=== PATIENT | male | born 1940 | race Caucasian/White ===

== ENCOUNTER 2016-12-11 15:08 | Emergency (ER) | payer MEDICAID, MEDICARE ==
[2016-12-11 15:58] VITALS: BP 154/79
[2016-12-11] MEDS ORDERED: Acetaminophen/oxyCODONE 325-5 MG Tab PO ONE (16:06)
--- NOTE | 2016-12-11 16:13 | EDM.PDOC ---
ED HPI GENERAL MEDICAL PROBLEM - General Chief Complaint: Headache Stated Complaint: HEADACHE Time Seen by Provider: 12/11/16 16:00 Source of Information: Reports: Patient History Limitations: Reports: No limitations - History of Present Illness INITIAL COMMENTS - FREE TEXT/NARRATIVE: Kavitha reports a 10 day hx of occipital frontal headache that started in the R neck. The headache is aching and throbbing, sharp at times, and not asociated with visual or gi disturbance. There are no sxs in the UEs. He has had cervical arthralgia in the past, and was on MS orally until about 3 mos ago. He was seen in yesterday, and an injection of Toradol was ineffective. Treatments [employer]: Reports: Acetaminophen, NSAIDS - Related Data Allergies Allergy/AdvReac Type Severity Reaction Status Date / Time No Known Allergies Allergy Verified 12/11/16 15:48 Home Meds: Home Meds Famotidine [Pepcid] 20 mg PO DAILY 12/11/16 [History] Past Medical History Gastrointestinal History: Reports: GERD Social & Family History - Tobacco Use Smoking Status *Q: Current Every Day Smoker Years of Tobacco use: 60 Packs/Tins Daily: 0.5 Used Tobacco, but Quit: No Second Hand Smoke Exposure: No - Caffeine Use Caffeine Use: Reports: Coffee - Recreational Drug Use Recreational Drug Use: No ED ROS GENERAL - Review of Systems Review Of Systems: See Below Constitutional: Reports: malaise HEENT: Reports: No symptoms Respiratory: Reports: No Symptoms Cardiovascular: Reports: No symptoms Endocrine: Reports: no symptoms GI/Abdominal: Reports: No symptoms Musculoskeletal: Reports: neck pain Skin: Reports: no symptoms Neurological: Reports: Headache Psychiatric: Reports: No symptoms Hematologic/Lymphatic: Reports: no symptoms Immunologic: Reports: no symptoms - Physical Exam Exam: See Below Exam Limited By: No limitations General Appearance: alert, WD/WN, no apparent distress Eye Exam: bilateral eye: normal inspection, PERRL Ears: normal external exam Nose: normal inspection Throat/Mouth: Normal inspection, Normal lips, Normal oropharynx, Normal voice Head Exam: normocephalic, scalp tenderness Neck: normal inspection, limited range of motion (guarding at end points of lateral rotation), tender lateral (right) Respiratory/Chest: no respiratory distress, lungs clear, normal breath sounds Cardiovascular: regular rate, rhythm, no murmur GI/Abdominal: Normal Bowel Sounds, Soft, Non-Tender, No Organomegaly, No Mass Neuro Exam (Abbreviated): alert, oriented, CN II-XII intact, normal cognition, normal gait, normal reflexes Back Exam: normal inspection, full range of motion Extremities: normal inspection, normal range of motion Psychiatric: normal affect, normal mood Skin Exam: Warm, Dry, Intact, Normal color Course - Vital Signs Text/Narrative:: Following admission to the [facility] ED, I administered Percocet 5/325 orally and sent to Diagnostic Imaging for c-spine x rays: degenerative disease with spurs at C4-5-6; further assessment is needed, and he will go to the [facility] as out pt for management. Last Recorded V/S: Last Vital Signs Temp 36.8 C 12/11/16 15:10 Pulse 68 12/11/16 15:10 Resp 18 12/11/16 15:10 BP 154/79 H 12/11/16 15:10 Pulse Ox 99 12/11/16 15:10 - Orders/Labs/Meds Orders: Active Orders 24 hr Category Date Time Status Cervical Spine Min 4V [CR] Stat Exams 12/11/16 16:06 Taken Meds: Medications Discontinued Medications Generic Name Dose Route Start Last Admin Trade Name Freq PRN Reason Stop Dose Admin Oxycodone/Acetaminophen 1 tab 12/11/16 16:06 12/11/16 16:30 Percocet 325-5 Mg PO 12/11/16 16:07 1 tab ONETIME ONE Administration Departure - Departure Time of Disposition: 16:50 Disposition: Home, Self-Care 01 Condition: fair Clinical Impression: Headache Qualifiers: Headache type: unspecified Headache chronicity pattern: unspecified pattern Intractability: not intractable Qualified Code(s): R51 - Headache Cervical spondylosis Qualifiers: Spinal osteoarthritis complication: unspecified spinal osteoarthritis Qualified Code(s): M47.812 - Spondylosis without myelopathy or radiculopathy, cervical region - Discharge Information Forms: ED Department Discharge - Problem List & Annotations (1) Headache SNOMED Code(s): 55931757 Code(s): R51 - HEADACHE Status: Acute Current Visit: Yes Annotation/ Comment:: Headaches likely related to cervical spondylosis w degenerative changes. Mr Medina will seek further assessment at the [facility] for managment. I provided some Ultram 50 mg q 6 hrs prn for headache sxs in the interim. Qualifiers: Headache type: unspecified Headache chronicity pattern: unspecified pattern Intractability: not intractable Qualified Code(s): R51 - Headache (2) Cervical spondylosis SNOMED Code(s): 227879961 Code(s): M47.812 - SPONDYLOSIS W/O MYELOPATHY OR RADICULOPATHY, CERVICAL REGION Status: Acute Current Visit: Yes Annotation/Comment:: Further assessment with possible MRI of cervical spine would be suggested at the [facility]. Qualifiers: Spinal osteoarthritis complication: unspecified spinal osteoarthritis Qualified Code(s): M47.812 - Spondylosis without myelopathy or radiculopathy, cervical region - Problem List Review Problem List Initiated/Reviewed/Updated: Yes - My Orders Last 24 Hours: My Active Orders 12/11/16 16:06 Cervical Spine Min 4V [CR] Stat - Assessment/Plan Last 24 Hours: My Active Orders 12/11/16 16:06 Cervical Spine Min 4V [CR] Stat Plan: Follow up at [facility] in [place].
[2016-12-11] MEDS ORDERED: traMADol 50 MG Tab PO ONE (16:36)
--- NOTE | 2016-12-12 10:41 | CR ---
INDICATION: Cervical degenerative changes, headache, no injury. CERVICAL SPINE: Six images of the cervical spine were obtained in five projections and revealed an appearance suggesting demineralization, which may be on the basis of osteoporosis and should be correlated clinically. Hypertrophic degenerative changes are noted minimally off anterior C4 vertebral body inferiorly. Slight degenerative disk disease may be present at that level with slightly decreased disk space seen. C5-6, C6-7, and C7-T1 have decreased disk spaces with hypertrophic degenerative changes of moderate degree at those levels. The C7-T1 level was not ideally visualized in the lateral projection, however. There is anterolisthesis suggested at C3-4, grade 1. Slight reversal of normal cervical lordosis is centered at C4-5. Degenerative changes with narrowing of the joint space are seen at the atlanto- odontoid interval. The prevertebral space appeared to be normal. There is narrowing of the neural foramina at the C5-6, C6-7 levels, most prominently on the left, relatively mild on the right. The odontoid appeared to be intact, as visualized. Hypertrophic degenerative changes are noted at the lateral masses in the mid to lower cervical spine. IMPRESSION: Osteoarthritis, degenerative disk disease, impingement on neural foramina, and possible osteoporosis. MTDD
== END 2016-12-11 16:50 | disposition home or self-care (01) ==
LOC: FB.ED 15:08
DX: R51 Headache (principal); M47.812 Spondylosis without myelopathy or radiculopathy, cervical region; F17.200 Nicotine dependence, unspecified, uncomplicated; K21.9 Gastro-esophageal reflux disease without esophagitis; Z79.899 Other long term (current) drug therapy
CPT/HCPCS: 72050; 99284; A9270; 99283

== ENCOUNTER 2017-08-24 14:15 | Inpatient (IN) | payer MEDICARE ==
[2017-08-24] MEDS ORDERED: Albuterol/Ipratropium 3.0-0.5 MG/3 ML Neb Soln NEB ONE (14:27)
[2017-08-24] MEDS ORDERED: methylPREDNISolone Sodium Succinate 125 MG/2 ML SDV IVPUSH ONE (14:27)
[2017-08-24] MEDS ORDERED: Albuterol/Ipratropium 3.0-0.5 MG/3 ML Neb Soln ONE (14:27)
--- NOTE | 2017-08-24 14:29 | EDM.PDOC ---
ED HPI GENERAL MEDICAL PROBLEM - General Stated Complaint: SOB, COUGHING AND FEVER Time Seen by Provider: 08/24/17 14:15 Source of Information: Reports: Patient History Limitations: Reports: Respiratory Distress - History of Present Illness INITIAL COMMENTS - FREE TEXT/NARRATIVE: 77 y.o.w.m, h/o COPD, former smoker, came with his PC to the ed due to worsening of SOB. Pt is on inhalers at home which "do not work". Pt has chronic low back pain. He lives by himself. No C/O , no N/V/d or any other acute medical issues. BP 197/77 temp 36.7 Pulse ox 93% on 3 l O2 Onset: Today Onset Date: 08/23/17 Onset Time: 18:00 Duration: Day(s):, Getting Worse, Intermittent Location: Reports: Chest Quality: Reports: Same as Previous Episode (SOB) Severity: Moderate Improves with: Reports: Rest Worsens with: Reports: Movement Context: Reports: Other (COPD) Associated Symptoms: Reports: Other (back pain) Flank Pain Score (Numeric/FACES): 7 denies when asked Pain Score (Numeric/FACES): 0 - Related Data Allergies Allergy/AdvReac Type Severity Reaction Status Date / Time No Known Allergies Allergy Verified 08/24/17 18:50 Home Meds: Home Meds Budesonide/Formoterol Fumarate [Symbicort 80-4.5 Mcg Inhaler] 1 puff INH BID [History] Omeprazole [priLOSEC OTC] 20 mg PO DAILY 08/24/17 [History] Albuterol Sulfate [Proair Hfa] 8.5 gm IH Q4HR #1 hfa.aer.ad 08/25/17 [Rx] Azithromycin 500 mg PO DAILY #2 tablet 08/25/17 [Rx] Benzonatate [Tessalon Perle] 100 mg PO QID #20 capsule 08/25/17 [Rx] Codeine/guaiFENesin [guaiFENesin-Codeine Syrup] 10 ml PO Q6H PRN #240 ml [Rx] Nicotine [Nicotine Patch] 1 each TD DAILY #30 patch.td24 08/25/17 [Rx] predniSONE 20 mg PO BID #10 tab 08/25/17 [Rx] Past Medical History Gastrointestinal History: Reports: GERD Social & Family History - Tobacco Use Smoking Status *Q: Current Every Day Smoker Years of Tobacco use: 60 Packs/Tins Daily: 0.5 Used Tobacco, but Quit: No Second Hand Smoke Exposure: No - Caffeine Use Caffeine Use: Reports: Coffee - Recreational Drug Use Recreational Drug Use: No ED ROS GENERAL - Review of Systems Review Of Systems: See Below Constitutional: Reports: No Symptoms, Other (back pain, SOB) HEENT: Reports: No Symptoms Respiratory: Reports: Shortness of Breath Cardiovascular: Reports: No Symptoms Endocrine: Reports: No Symptoms GI/Abdominal: Reports: No Symptoms : Reports: No Symptoms Musculoskeletal: Reports: Back Pain Skin: Reports: No Symptoms Neurological: Reports: No Symptoms Psychiatric: Reports: No Symptoms Hematologic/Lymphatic: Reports: No Symptoms Immunologic: Reports: No Symptoms ED EXAM, GENERAL - Physical Exam Exam: See Below Exam Limited By: Respiratory Distress General Appearance: Alert, WD/WN, Moderate Distress Eye Exam: Bilateral Eye: Normal Inspection Ears: Normal External Exam Ear Exam: Bilateral Ear: Auricle Normal Nose: Normal Inspection, Normal Mucosa, No Blood Throat/Mouth: Normal Inspection, Normal Lips Head: Atraumatic, Normocephalic Neck: Normal Inspection, Supple, Non-Tender, Full Range of Motion Respiratory/Chest: Respiratory Distress, Decreased Breath Sounds, Wheezing, Prolonged Expiration Cardiovascular: Normal Peripheral Pulses, Regular Rate, Rhythm, No Edema, No Gallop, No JVD, No Murmur, No Rub Peripheral Pulses: 1+: Radial (L) GI/Abdominal: Normal Bowel Sounds, Soft, Non-Tender, No Organomegaly (Male) Exam: Deferred Rectal (Males) Exam: Deferred Back Exam: Normal Inspection, Full Range of Motion Extremities: Normal Inspection, Normal Range of Motion Neurological: Alert, Oriented, CN II-XII Intact, Normal Cognition, No Motor/ Sensory Deficits Psychiatric: Normal Affect, Normal Mood Skin Exam: Warm, Dry, Intact, Normal Color, No Rash Lymphatic: No Adenopathy Course - Vital Signs Text/Narrative:: 77 y.o.w.m, h/o COPD, former smoker, came with his PC to the ed due to worsening of SOB. Pt is on inhalers at home which "do not work". Pt has chronic low back pain. He lives by himself. No C/O , no N/V/d or any other acute medical issues. BP 199/77 temp 36.7 Pulse ox 93% on 3 l O2 PE: Thin 77 y.o.w.m with SOB Imaging: CXR: COPD, NAD Labs: WBC H/H nl, Neutrophils 93% Na 138 K 3.4 Impression: COPD exacerbation, Hematuria ( will see urologist this week), chronic back pain Tx: Solu medrol, Duo neb, Toradol Reexam: Pt's pulse 0x drops below 86% when ambulating after tx, BP improved 4.40 pm: Consultation: Dr. Burgess, Hospitalist: Accepted for admission Plan: Admit to [facility] Last Recorded V/S: Last Vital Signs Temp 36.9 C 08/25/17 08:00 Pulse 81 08/25/17 08:00 Resp 18 08/25/17 08:00 BP 137/71 08/25/17 08:00 Pulse Ox 93 L 08/25/17 08:00 - Orders/Labs/Meds Labs: Laboratory Tests 08/24/17 08/24/17 08/24/17 Range/Units 15:00 15:00 15:00 WBC 6.3 (4.5-12.0) X10-3/uL RBC 4.21 L (4.30-5.75) x10(6)uL Hgb 12.8 (11.5-15.5) g/dL Hct 38.1 (30.0-51.3) % MCV 90.4 (80-96) fL MCH 30.4 (27.7-33.6) pg MCHC 33.6 (32.2-35.4) g/dL RDW 13.1 (11.5-15.5) % Plt Count 184 (125-369) X10(3)uL MPV 7.4 (7.4-10.4) fL Neut % (Auto) 78.0 (46-82) % Lymph % (Auto) 11.9 L (13-37) % [place] % (Auto) 9.0 (4-12) % Eos % (Auto) 1 (1.0-5.0) % Baso % (Auto) 1 (0-2) % Neut # (Auto) 5.0 (1.6-8.3) # Lymph # (Auto) 0.7 (0.6-5.0) # [place] # (Auto) 0.6 (0.0-1.3) # Eos # (Auto) 0.0 (0.0-0.8) # Baso # (Auto) 0.0 (0.0-0.2) # PT 10.8 (8.7-11.1) INR 1.07 (0.89-1.13) Sodium 143 (135-145) mmol/L Potassium 3.4 L (3.5-5.3) mmol/L Chloride 107 (100-110) mmol/L Carbon Dioxide 26 (21-32) mmol/L BUN 17 (7-18) mg/dL Creatinine 0.9 (0.70-1.30) mg/dL Est Cr Clr Drug Dosing 68.72 mL/min Estimated GFR (MDRD) > 60 (>60) BUN/Creatinine Ratio 18.9 (9-20) Glucose 103 (80-116) mg/dL Lactic Acid (0.4-2.2) mmol/L Calcium 8.6 (8.6-10.2) mg/dL Urine Color (YELLOW) Urine Appearance (CLEAR) Urine pH (5.0-6.5) Ur Specific [place] (1.010-1.025) Urine Protein (NEGATIVE) mg/dL Urine Glucose (UA) (NEGATIVE) mg/dL Urine Ketones (NEGATIVE) mg/dL Urine Occult Blood (NEGATIVE) Urine Nitrite (NEGATIVE) Urine Bilirubin (NEGATIVE) Urine Urobilinogen (NEGATIVE) mg/dL Ur Leukocyte Esterase (NEGATIVE) Urine RBC (0) Urine WBC (0) Ur Squamous Epith Cells (NS,R,O) Urine Bacteria (NS) Urine Mucus (NS) 08/24/17 08/24/17 Range/Units 15:00 15:20 WBC (4.5-12.0) X10-3/uL RBC (4.30-5.75) x10(6)uL Hgb (11.5-15.5) g/dL Hct (30.0-51.3) % MCV (80-96) fL MCH (27.7-33.6) pg MCHC (32.2-35.4) g/dL RDW (11.5-15.5) % Plt Count (125-369) X10(3)uL MPV (7.4-10.4) fL Neut % (Auto) (46-82) % Lymph % (Auto) (13-37) % [place] % (Auto) (4-12) % Eos % (Auto) (1.0-5.0) % Baso % (Auto) (0-2) % Neut # (Auto) (1.6-8.3) # Lymph # (Auto) (0.6-5.0) # [place] # (Auto) (0.0-1.3) # Eos # (Auto) (0.0-0.8) # Baso # (Auto) (0.0-0.2) # PT (8.7-11.1) INR (0.89-1.13) Sodium (135-145) mmol/L Potassium (3.5-5.3) mmol/L Chloride (100-110) mmol/L Carbon Dioxide (21-32) mmol/L BUN (7-18) mg/dL Creatinine (0.70-1.30) mg/dL Est Cr Clr Drug Dosing mL/min Estimated GFR (MDRD) (>60) BUN/Creatinine Ratio (9-20) Glucose (80-116) mg/dL Lactic Acid 1.2 (0.4-2.2) mmol/L Calcium (8.6-10.2) mg/dL Urine Color Yellow (YELLOW) Urine Appearance Clear (CLEAR) Urine pH 5.0 (5.0-6.5) Ur Specific [place] 1.020 (1.010-1.025) Urine Protein Negative (NEGATIVE) mg/dL Urine Glucose (UA) Normal (NEGATIVE) mg/dL Urine Ketones 15 H (NEGATIVE) mg/dL Urine Occult Blood Moderate H (NEGATIVE) Urine Nitrite Negative (NEGATIVE) Urine Bilirubin Negative (NEGATIVE) Urine Urobilinogen Normal (NEGATIVE) mg/dL Ur Leukocyte Esterase Negative (NEGATIVE) Urine RBC 5-10 (0) Urine WBC 0-5 (0) Ur Squamous Epith Cells Moderate H (NS,R,O) Urine Bacteria Few H (NS) Urine Mucus Moderate H (NS) Meds: Medications Discontinued Medications Generic Name Dose Route Start Last Admin Trade Name Freq PRN Reason Stop Dose Admin Albuterol/Ipratropium 3 ml 08/24/17 14:27 08/24/17 14:30 Duoneb 3.0-0.5 Mg/3 Ml NEB 08/24/17 14:28 3 ml ONETIME ONE Administration Albuterol/Ipratropium Confirm 08/24/17 14:27 08/24/17 16:49 Duoneb 3.0-0.5 Mg/3 Ml Administered 08/24/17 14:28 Not Given Dose 3 ml .ROUTE .STK-MED ONE Albuterol/Ipratropium 3 ml 08/24/17 17:00 08/25/17 08:11 Duoneb 3.0-0.5 Mg/3 Ml NEB 3 ml Q4H KRISH Administration Azithromycin 500 mg 08/24/17 19:45 08/25/17 08:11 Zithromax PO 500 mg DAILY KRISH Administration Benzonatate 200 mg 08/24/17 21:00 08/25/17 08:11 Tessalon Perles PO 200 mg TID KRISH Administration Guaifenesin/Codeine Phosphate 10 ml 08/24/17 19:42 08/25/17 00:50 Robitussin Ac PO 10 ml Q6H PRN Administration Cough Ketorolac Tromethamine 15 mg 08/24/17 15:45 08/24/17 15:52 Toradol IVPUSH 08/24/17 15:46 15 mg ONETIME STA Administration Ketorolac Tromethamine 15 mg 08/24/17 19:42 Toradol IVPUSH 08/29/17 19:43 Q6H PRN Breakthrough Pain Ketorolac Tromethamine 15 mg 08/24/17 19:49 Toradol IVPUSH 08/29/17 19:43 Q6H PRN Breakthrough Pain Melatonin 6 mg 08/24/17 21:00 08/24/17 20:54 Melatonin PO 6 mg BEDTIME KRISH Administration Methylprednisolone Sodium Succinate 125 mg 08/24/17 14:27 08/24/17 15:45 Solu-Medrol IVPUSH 08/24/17 14:28 125 mg ONETIME ONE Administration Methylprednisolone Sodium Succinate 125 mg 08/24/17 17:00 08/24/17 20:01 Solu-Medrol IVPUSH Not Given Q8H KRISH Methylprednisolone Sodium Succinate 125 mg 08/25/17 00:00 08/25/17 08:10 Solu-Medrol IVPUSH 125 mg Q8H KRISH Administration Mometasone Furoate/Formoterol Fumar 1 puff 08/24/17 21:00 08/25/17 08:10 Dulera 100-5 Mcg IH 1 puff BID KRISH Administration Nicotine 14 mg 08/24/17 20:00 08/25/17 08:11 Habitrol TRDERM 14 mg DAILY KRISH Administration Pantoprazole Sodium 40 mg 08/25/17 07:30 08/25/17 08:09 Protonix PO 40 mg ACBREAKFAST KRISH Administration Prednisone 20 mg 08/24/17 21:00 08/25/17 08:11 Prednisone PO 20 mg BID KRISH Administration Sodium Chloride 10 ml 08/24/17 15:40 08/25/17 00:38 Saline Flush FLUSH 10 ml ASDIRECTED PRN Administration Keep Vein Open Temazepam 15 mg 08/24/17 19:42 08/24/17 20:54 Restoril PO 15 mg BEDTIME PRN Administration Insomnia Tramadol HCl 50 mg 08/24/17 19:42 08/25/17 00:50 Ultram PO 50 mg Q6H PRN Administration Breakthrough Pain Departure - Departure Time of Disposition: 07:00 Disposition: Admitted As Inpatient 64 Condition: Fair Clinical Impression: COPD (chronic obstructive pulmonary disease) with chronic bronchitis - Discharge Information
[2017-08-24] MEDS: Sodium Chloride 0.9% 10 ML Syringe FLUSH PRN (15:43)
[2017-08-24] MEDS ORDERED: Ketorolac 30 MG/ML SDV IVPUSH STA (15:45)
[2017-08-24] MEDS ORDERED: methylPREDNISolone Sodium Succinate 125 MG/2 ML SDV IVPUSH SCH (17:00)
[2017-08-24] MEDS: Albuterol/Ipratropium 3.0-0.5 MG/3 ML Neb Soln NEB SCH ×2 (18:51→20:54)
[2017-08-24] MEDS ORDERED: Codeine/guaiFENesin 100-10 MG/5 ML Syrup 5 ML Cup PO PRN (19:42)
[2017-08-24] MEDS ORDERED: Ketorolac 30 MG/ML SDV IVPUSH PRN (19:42)
[2017-08-24] MEDS ORDERED: traMADol 50 MG Tab PO PRN (19:42)
[2017-08-24] MEDS ORDERED: Temazepam 15 MG Cap PO PRN (19:42)
--- NOTE | 2017-08-24 19:48 | PCM.HP ---
H&P History of Present Illness - General Date of Service: 08/24/17 Admit Problem/Dx: Admission Diagnosis/Problem Admission Diagnosis/Problem COPD, Moderate chronic obstructive pulmonary disease Source of Information: Patient, Old Records History Limitations: Reports: No Limitations - History of Present Illness Initial Comments - Free Text/Narative: 77-year-old male with COPD. Presented to the ER with shortness of breath cough for 2 days also. Initially responded to nebulized albuterol but was found to be hypoxic on ambulation. He also is known to have the tobacco abuse was cut back. He denies any fever chest pain or chills Flank Pain Score (Numeric/FACES): 7 denies when asked Pain Score (Numeric/FACES): 0 - Related Data Allergies/Adverse Reactions: Allergies Allergy/AdvReac Type Severity Reaction Status Date / Time No Known Allergies Allergy Verified 08/24/17 18:50 Home Medications: Home Meds Budesonide/Formoterol Fumarate [Symbicort 80-4.5 Mcg Inhaler] 1 puff INH BID [History] Ciprofloxacin HCl [Cipro] 500 mg PO BID 08/24/17 [History] Omeprazole [priLOSEC OTC] 20 mg PO DAILY 08/24/17 [History] Past Medical History HEENT History: Reports: Impaired Vision Cardiovascular History: Reports: None Respiratory History: Reports: COPD, SOB Gastrointestinal History: Reports: GERD Genitourinary History: Reports: BPH, Other (See Below) Other Genitourinary History: blood in urine past week then better, then came back Musculoskeletal History: Reports: Arthritis, Back Pain, Chronic, Neck Pain, Chronic Neurological History: Reports: None Psychiatric History: Reports: Anxiety Endocrine/Metabolic History: Reports: None Hematologic History: Reports: None Immunologic History: Reports: None Oncologic (Cancer) History: Reports: None Dermatologic History: Reports: None - Infectious Disease History Infectious Disease History: Reports: Chicken Pox, Measles - Past Surgical History Head Surgeries/Procedures: Reports: None HEENT Surgical History: Reports: Adenoidectomy, Tonsillectomy Cardiovascular Surgical History: Reports: None Respiratory Surgical History: Reports: None GI Surgical History: Reports: Appendectomy Male Surgical History: Reports: Circumcision Endocrine Surgical History: Reports: None Neurological Surgical History: Reports: None Musculoskeletal Surgical History: Reports: None Oncologic Surgical History: Reports: None Dermatological Surgical History: Reports: None Social & Family History - Family History Family Medical History: Noncontributory - Tobacco Use Smoking Status *Q: Heavy Tobacco Smoker Years of Tobacco use: 62 Packs/Tins Daily: 0.5 Used Tobacco, but Quit: No Second Hand Smoke Exposure: No - Caffeine Use Caffeine Use: Reports: Coffee, Soda - Recreational Drug Use Recreational Drug Use: No H&P Review of Systems - Review of Systems: Review Of Systems: ROS reveals no pertinent complaints other than HPI. Exam - Exam Exam: See Below - Vital Signs Vital Signs: Last Vital Signs Temp 98.3 F 08/24/17 17:20 Pulse 88 08/24/17 17:20 Resp 20 08/24/17 17:20 BP 143/82 H 08/24/17 17:20 Pulse Ox 97 08/24/17 17:20 Weight: 78.834 kg - Exam Quality Assessment: Supplemental Oxygen General: Alert, Oriented, 4 HEENT: PERRLA, Hearing Intact, Mucosa Moist & [place], Nares Patent, Normal Nasal Septum, Posterior Pharynx Clear, Conjunctiva Clear, EOMI, EACs Clear, TMs Clear Neck: Supple, Trachea Midline, 2 Lungs: Decreased Breath Sounds, Rhonchi Cardiovascular: Regular Rate, Regular Rhythm, Systolic Murmur GI/Abdominal Exam: Normal Bowel Sounds, Soft, Non-Tender, No Organomegaly, No Distention, No Abnormal Bruit, No Mass, Pelvis Stable (Male) Exam: No Hernia, Normal Inspection, Normal Prostate, Circumcised Rectal (Males) Exam: Deferred Back Exam: Normal Inspection, Full Range of Motion, NT Extremities: Normal Inspection, Normal Range of Motion, Non-Tender, No Pedal Edema, Normal Capillary Refill Skin: Warm, Dry, Intact Neurological: Cranial Nerves Intact, Reflexes Equal Bilateral Neuro Extensive - Mental Status: Alert, Oriented x3, Normal Mood/Affect, Normal Cognition Neuro Extensive - Motor, Sensory, Reflexes: CN II-XII Intact, Normal Gait, Normal Reflexes Psychiatric: Alert, Normal Affect, Normal Mood - Patient Data Result Diagrams: 08/25/17 06:05 08/25/17 06:05 *Q Meaningful Use (ADM) - VTE *Q VTE Criteria *Q: - Stroke *Q Stroke Criteria *Q: - AMI *Q AMI Criteria *Q: - Problem List (1) COPD (chronic obstructive pulmonary disease) SNOMED Code(s): 64024229 ICD Code: J44.9 - CHRONIC OBSTRUCTIVE PULMONARY DISEASE, UNSPECIFIED Status : Acute Current Visit: Yes Qualifiers: COPD type: chronic bronchitis (2) OZZIE (generalized anxiety disorder) SNOMED Code(s): 99092816 ICD Code: F41.1 - GENERALIZED ANXIETY DISORDER Status: Acute Current Visit: Yes (3) Chronic back pain SNOMED Code(s): 728222225 ICD Code: M54.9 - DORSALGIA, UNSPECIFIED; G89.29 - OTHER CHRONIC PAIN Status: Acute Current Visit: Yes (4) Hematuria SNOMED Code(s): 12446263 ICD Code: R31.9 - HEMATURIA, UNSPECIFIED Status: Acute Current Visit: Yes (5) Tobacco abuse SNOMED Code(s): 715726146 ICD Code: Z72.0 - TOBACCO USE Status: Acute Current Visit: Yes (6) Cervical spondylosis SNOMED Code(s): 647673490 ICD Code: M47.812 - SPONDYLOSIS W/O MYELOPATHY OR RADICULOPATHY, CERVICAL REGION Status: Acute Current Visit: No Problem Details: Further assessment with possible MRI of cervical spine would be suggested at the [facility]. Qualifiers: Spinal osteoarthritis complication: unspecified spinal osteoarthritis Qualified Code(s): M47.812 - Spondylosis without myelopathy or radiculopathy, cervical region Problem List Initiated/Reviewed/Updated: Yes Orders Last 24hrs: Active Orders 24 hr Category Date Time Status RT Aerosol Therapy [RC] ASDIRECTED Care 08/24/17 16:52 Active Adult Diet [DIET] Diet 08/24/17 Breakfast Ordered CBC WITH AUTO DIFF [HEME] AM Lab 08/25/17 05:11 Ordered COMPREHENSIVE METABOLIC PN,CMP [CHEM] AM Lab 08/25/17 05:11 Ordered PRO B-TYPE NATRIUR PEPT,BNPPRO [CHEM] DAILY Lab 08/25/17 05:11 Ordered Albuterol/Ipratropium [DuoNeb 3.0-0.5 MG/3 ML] Med 08/24/17 17:00 Active 3 ml NEB Q4H Azithromycin [Zithromax] Med 08/24/17 19:45 Ordered 500 mg PO DAILY Benzonatate [Tessalon Perles] Med 08/24/17 21:00 Ordered 200 mg PO TID Codeine/guaiFENesin [Robitussin AC] Med 08/24/17 19:42 Ordered 10 ml PO Q6H PRN Ketorolac [Toradol] Med 08/24/17 19:42 Ordered 15 mg IVPUSH Q6H PRN Melatonin Med 08/24/17 21:00 Ordered 6 mg PO BEDTIME Mometasone/Formoterol [Dulera 100-5 MCG] Med 08/24/17 21:00 Active 1 puff IH BID Pantoprazole [ProTONIX] Med 08/25/17 07:30 Active 40 mg PO ACBREAKFAST Sodium Chloride 0.9% [Saline Flush] Med 08/24/17 15:40 Active 10 ml FLUSH ASDIRECTED PRN Temazepam [Restoril] Med 08/24/17 19:42 Ordered 15 mg PO BEDTIME PRN methylPREDNISolone Sod Succ [Solu-MEDROL] Med 08/25/17 00:00 Active 125 mg IVPUSH Q8H predniSONE Med 08/24/17 21:00 Ordered 20 mg PO BID traMADol [Ultram] Med 08/24/17 19:42 Ordered 50 mg PO Q6H PRN Medication Orders Albuterol/Ipratropium (Duoneb 3.0-0.5 Mg/3 Ml) 3 ml NEB Q4H KR[facility] Last Admin: 08/24/17 18:51 Dose: Azithromycin (Zithromax) 500 mg PO DAILY [facility] Benzonatate (Tessalon Perles) 200 mg PO TID [facility] Guaifenesin/Codeine Phosphate (Robitussin Ac) 10 ml PO Q6H PRN PRN Reason: Cough Ketorolac Tromethamine (Toradol) 15 mg IVPUSH Q6H PRN PRN Reason: Breakthrough Pain Stop: 08/29/17 19:43 Melatonin (Melatonin) 6 mg PO BEDTIME [facility] Methylprednisolone Sodium Succinate (Solu-Medrol) 125 mg IVPUSH Q8H [facility] Mometasone Furoate/Formoterol Fumar (Dulera 100-5 Mcg) 1 puff IH BID [facility] Pantoprazole Sodium (Protonix) 40 mg PO ACBREAKFAST [facility] Prednisone (Prednisone) 20 mg PO BID [facility] Sodium Chloride (Saline Flush) 10 ml FLUSH ASDIRECTED PRN PRN Reason: Keep Vein Open Last Admin: 08/24/17 15:43 Dose: 10 ml Temazepam (Restoril) 15 mg PO BEDTIME PRN PRN Reason: Insomnia Tramadol HCl (Ultram) 50 mg PO Q6H PRN PRN Reason: Breakthrough Pain Assessment/Plan Comment:: Admit patient for IV Solu-Medrol, will give Robitussin with codeine to pulse and also an antibiotic. I decided to do azithromycin for its anti-inflammatory effects and discontinue ciprofloxacin. Tramadol when necessary for back pain.
[2017-08-24] MEDS ORDERED: Ketorolac 15 MG/ML SDV IVPUSH PRN (19:49)
[2017-08-24] MEDS: Nicotine 14 MG/24 Hr Patch TRDERM SCH (20:51)
[2017-08-24] MEDS: Azithromycin 250 MG Tab PO SCH (20:51)
[2017-08-24] MEDS: Formoterol/Mometasone 100-5 MCG 8.8 GM Inhaler IH SCH (20:52)
[2017-08-24] MEDS: Benzonatate 100 MG Cap PO SCH (20:54)
[2017-08-24] MEDS: predniSONE 20 MG Tab PO SCH (20:55)
[2017-08-24] MEDS ORDERED: Melatonin 3 MG Tab PO SCH (21:00)
[2017-08-25] MEDS: methylPREDNISolone Sodium Succinate 125 MG/2 ML SDV IVPUSH SCH ×2 (00:34→08:10)
[2017-08-25] MEDS: Sodium Chloride 0.9% 10 ML Syringe FLUSH PRN (00:38)
[2017-08-25] MEDS: Albuterol/Ipratropium 3.0-0.5 MG/3 ML Neb Soln NEB SCH ×3 (00:42→08:11)
[2017-08-25] MEDS ORDERED: Pantoprazole 40 MG Tab.CR PO SCH (07:30)
[2017-08-25 08:03] VITALS: BP 137/71
[2017-08-25] MEDS: Formoterol/Mometasone 100-5 MCG 8.8 GM Inhaler IH SCH (08:10)
[2017-08-25] MEDS: Azithromycin 250 MG Tab PO SCH (08:11)
[2017-08-25] MEDS: Nicotine 14 MG/24 Hr Patch TRDERM SCH (08:11)
[2017-08-25] MEDS: Benzonatate 100 MG Cap PO SCH (08:11)
[2017-08-25] MEDS: predniSONE 20 MG Tab PO SCH (08:11)
--- NOTE | 2017-08-25 08:35 | PCM.PN ---
- General Info Date of Service: 08/25/17 Admission Dx/Problem (Free Text): Admission Diagnosis/Problem Admission Diagnosis/Problem COPD, Moderate chronic obstructive pulmonary disease Subjective Update: Patient feels better this morning is off oxygenation. He would like to go home. He has expressed interest in quitting smoking. No fevers been reported overnight. He slept very well. Functional Status: Reports: Pain Controlled, Tolerating Diet - Patient Data Vitals - Most Recent: Last Vital Signs Temp 98.4 F 08/25/17 08:00 Pulse 81 08/25/17 08:00 Resp 18 08/25/17 08:00 BP 137/71 08/25/17 08:00 Pulse Ox 93 L 08/25/17 08:00 Weight - Most Recent: 78.834 kg Lab Results Last 24 Hours: Laboratory Results - last 24 hr 08/25/17 08/25/17 08/25/17 Range/Units 06:05 06:05 06:05 WBC 7.0 (4.5-12.0) X10-3/uL RBC 4.04 L (4.30-5.75) x10(6)uL Hgb 12.2 (11.5-15.5) g/dL Hct 36.0 (30.0-51.3) % MCV 89.3 (80-96) fL MCH 30.2 (27.7-33.6) pg MCHC 33.8 (32.2-35.4) g/dL RDW 13.0 (11.5-15.5) % Plt Count 165 (125-369) X10(3)uL MPV 7.4 (7.4-10.4) fL Add Manual Diff Yes Neutrophils % (Manual) 93 H (46-82) % Lymphocytes % (Manual) 6 L (13-37) % Monocytes % (Manual) 1 L (4-12) % Sodium 141 (135-145) mmol/L Potassium 3.5 (3.5-5.3) mmol/L Chloride 105 (100-110) mmol/L Carbon Dioxide 26 (21-32) mmol/L BUN 24 H (7-18) mg/dL Creatinine 0.9 (0.70-1.30) mg/dL Est Cr Clr Drug Dosing 68.72 mL/min Estimated GFR (MDRD) > 60 (>60) BUN/Creatinine Ratio 26.7 H (9-20) Glucose 153 H (80-116) mg/dL Calcium 8.7 (8.6-10.2) mg/dL Total Bilirubin 0.3 (0.1-1.3) mg/dL AST 35 H (5-25) IU/L ALT 29 (12-36) U/L Alkaline Phosphatase 79 (56-112) IU/L NT-Pro-B Natriuret Pep 233 (<=450) pg/mL Total Protein 6.8 (6.0-8.0) g/dL Albumin 3.5 (3.2-4.6) g/dL Globulin 3.3 g/dL Albumin/Globulin Ratio 1.1 Gerard Results Last 24 Hours: Microbiology 08/24/17 21:00 Influenza Type A Antigen Screen - Final Nasal, Right NEGATIVE INFLUENZA A VIRUS AG Influenza Type B Antigen Screen - Final NEGATIVE INFLUENZA B VIRUS AG Med Orders - Current: Current Medications Albuterol/Ipratropium (Duoneb 3.0-0.5 Mg/3 Ml) 3 ml NEB Q4H [facility] Last Admin: 08/25/17 08:11 Dose: 3 ml Azithromycin (Zithromax) 500 mg PO DAILY [facility] Last Admin: 08/25/17 08:11 Dose: 500 mg Benzonatate (Tessalon Perles) 200 mg PO TID [facility] Last Admin: 08/25/17 08:11 Dose: 200 mg Guaifenesin/Codeine Phosphate (Robitussin Ac) 10 ml PO Q6H PRN PRN Reason: Cough Last Admin: 08/25/17 00:50 Dose: 10 ml Ketorolac Tromethamine (Toradol) 15 mg IVPUSH Q6H PRN PRN Reason: Breakthrough Pain Stop: 08/29/17 19:43 Melatonin (Melatonin) 6 mg PO BEDTIME [facility] Last Admin: 08/24/17 20:54 Dose: 6 mg Methylprednisolone Sodium Succinate (Solu-Medrol) 125 mg IVPUSH Q8H [facility] Last Admin: 08/25/17 08:10 Dose: 125 mg Mometasone Furoate/Formoterol Fumar (Dulera 100-5 Mcg) 1 puff IH BID [facility] Last Admin: 08/25/17 08:10 Dose: 1 puff Nicotine (Habitrol) 14 mg TRDERM DAILY [facility] Last Admin: 08/25/17 08:11 Dose: 14 mg Pantoprazole Sodium (Protonix) 40 mg PO ACBREAKFAST [facility] Last Admin: 08/25/17 08:09 Dose: 40 mg Prednisone (Prednisone) 20 mg PO BID [facility] Last Admin: 08/25/17 08:11 Dose: 20 mg Sodium Chloride (Saline Flush) 10 ml FLUSH ASDIRECTED PRN PRN Reason: Keep Vein Open Last Admin: 08/25/17 00:38 Dose: 10 ml Temazepam (Restoril) 15 mg PO BEDTIME PRN PRN Reason: Insomnia Last Admin: 08/24/17 20:54 Dose: 15 mg Tramadol HCl (Ultram) 50 mg PO Q6H PRN PRN Reason: Breakthrough Pain Last Admin: 08/25/17 00:50 Dose: 50 mg Discontinued Medications Albuterol/Ipratropium (Duoneb 3.0-0.5 Mg/3 Ml) 3 ml NEB ONETIME ONE Stop: 08/24/17 14:28 Last Admin: 08/24/17 14:30 Dose: 3 ml Albuterol/Ipratropium (Duoneb 3.0-0.5 Mg/3 Ml) Confirm Administered Dose 3 ml .ROUTE .STK-MED ONE Stop: 08/24/17 14:28 Last Admin: 08/24/17 16:49 Dose: Not Given Ketorolac Tromethamine (Toradol) 15 mg IVPUSH ONETIME STA Stop: 08/24/17 15:46 Last Admin: 08/24/17 15:52 Dose: 15 mg Ketorolac Tromethamine (Toradol) 15 mg IVPUSH Q6H PRN PRN Reason: Breakthrough Pain Stop: 08/29/17 19:43 Methylprednisolone Sodium Succinate (Solu-Medrol) 125 mg IVPUSH ONETIME ONE Stop: 08/24/17 14:28 Last Admin: 08/24/17 15:45 Dose: 125 mg Methylprednisolone Sodium Succinate (Solu-Medrol) 125 mg IVPUSH Q8H [facility] Last Admin: 08/24/17 20:01 Dose: Not Given - Exam Quality Assessment: No: Supplemental Oxygen General: Alert, Oriented HEENT: Pupils Equal Neck: Supple Lungs: Normal Respiratory Effort, Decreased Breath Sounds Cardiovascular: Regular Rate, Regular Rhythm - Problem List & Annotations (1) COPD (chronic obstructive pulmonary disease) SNOMED Code(s): 16875565 Code(s): J44.9 - CHRONIC OBSTRUCTIVE PULMONARY DISEASE, UNSPECIFIED Status : Acute Current Visit: Yes Qualifiers: COPD type: chronic bronchitis (2) OZZIE (generalized anxiety disorder) SNOMED Code(s): 29765113 Code(s): F41.1 - GENERALIZED ANXIETY DISORDER Status: Acute Current Visit : Yes (3) Chronic back pain SNOMED Code(s): 816437283 Code(s): M54.9 - DORSALGIA, UNSPECIFIED; G89.29 - OTHER CHRONIC PAIN Status : Acute Current Visit: Yes (4) Hematuria SNOMED Code(s): 42721042 Code(s): R31.9 - HEMATURIA, UNSPECIFIED Status: Acute Current Visit: Yes (5) Tobacco abuse SNOMED Code(s): 446794660 Code(s): Z72.0 - TOBACCO USE Status: Acute Current Visit: Yes (6) Cervical spondylosis SNOMED Code(s): 819249319 Code(s): M47.812 - SPONDYLOSIS W/O MYELOPATHY OR RADICULOPATHY, CERVICAL REGION Status: Acute Current Visit: No Qualifiers: Spinal osteoarthritis complication: unspecified spinal osteoarthritis Qualified Code(s): M47.812 - Spondylosis without myelopathy or radiculopathy, cervical region Annotation/Comment:: Further assessment with possible MRI of cervical spine would be suggested at the [facility]. - Problem List Review Problem List Initiated/Reviewed/Updated: Yes - My Orders Last 24 Hours: My Active Orders 08/24/17 19:42 Codeine/guaiFENesin [Robitussin AC] 10 ml PO Q6H PRN Temazepam [Restoril] 15 mg PO BEDTIME PRN traMADol [Ultram] 50 mg PO Q6H PRN 08/24/17 19:45 Azithromycin [Zithromax] 500 mg PO DAILY 08/24/17 19:49 Ketorolac [Toradol] 15 mg IVPUSH Q6H PRN 08/24/17 20:00 Nicotine [Habitrol] 14 mg TRDERM DAILY 08/24/17 21:00 Benzonatate [Tessalon Perles] 200 mg PO TID Melatonin 6 mg PO BEDTIME Mometasone/Formoterol [Dulera 100-5 MCG] 1 puff IH BID predniSONE 20 mg PO BID 08/24/17 Breakfast Adult Diet [DIET] 08/25/17 07:30 Pantoprazole [ProTONIX] 40 mg PO ACBREAKFAST - Plan Plan:: Discharge patient home on oral prednisone, to finish his azithromycin course. Also given Robitussin with codeine when necessary for cough to some pulse as needed and Nicotrol patches. I've advised him to see me in the office next week or return to the ED with any worsening symptoms.
--- NOTE | 2017-08-25 09:21 | DISCH ---
DISCHARGE DATE: 08/25/2017 REASON FOR ADMISSION: COPD. DISCHARGE DIAGNOSES: 1. Chronic obstructive pulmonary disease. 2. Anxiety. 3. Back pain. 4. Tobacco abuse. HOSPITAL COURSE: A 77-year-old who was brought in because of shortness of breath and cough. X-ray was negative, but was hypoxic. He is a heavy smoker. He was discharged after observation, IV Solu-Medrol, SVNs, and his symptoms improved. He was off oxygenation. DISCHARGE MEDICATIONS: 1. Azithromycin 500 mg daily x2 more days. 2. Prednisone 10 mg b.i.d. for 5 more days. 3. Robitussin with codeine and Tessalon pulses to use as needed. 4. Nicotine patches 14 mcg every 24 hours. 5. Smoking cessation was discussed with the patient and discharged home. FOLLOWUP: In the office within 1 week. I spent more than 35 minutes in the discharge of the patient. /[id number] JONATHAN/AGUILAR
--- NOTE | 2017-08-26 11:02 | CR ---
INDICATION: Short of breath. CHEST: Portable AP upright view of the chest was obtained 08/24/2017 and compared with 12/27/2015 clinic images of the chest. Very poor inspiration is noted on the current study, emphasizing markings further. Heavy markings present likely represent pulmonary fibrosis, but make it difficult to exclude areas of patchy bronchopneumonia in the right mid lung field, lower lung field, and left lower lung field. The heart size appears to be grossly normal. There is a large mass behind the heart compatible with a large fixed hiatal hernia. Overlying EKG leads are noted. No definite consolidating pneumonia was identified. No pleural effusion was suggested. IMPRESSION: 1. No definite acute process, but difficult to exclude areas of patchy bronchopneumonia due to pulmonary fibrosis. 2. ASD aorta with heart size normal. 3. Large fixed hiatal hernia. MTDD
== END 2017-08-25 10:35 | disposition home or self-care (01) | DRG 192 ==
LOC: FB.ED 14:15 → FB.MS 16:49
PROVIDERS: ADMIT Family Medicine; ATTEND Family Medicine
DX: J44.9 Chronic obstructive pulmonary disease, unspecified (principal); F17.210 Nicotine dependence, cigarettes, uncomplicated; M54.9 Dorsalgia, unspecified; G89.29 Other chronic pain; R31.9 Hematuria, unspecified; R06.02 Shortness of breath; R50.9 Fever, unspecified; R05 Cough; R09.02 Hypoxemia; K21.9 Gastro-esophageal reflux disease without esophagitis; H54.7 Unspecified visual loss; N40.0 Benign prostatic hyperplasia without lower urinary tract symptoms; M19.90 Unspecified osteoarthritis, unspecified site; F41.1 Generalized anxiety disorder; M47.812 Spondylosis without myelopathy or radiculopathy, cervical region
CPT/HCPCS: 36415; 71045; 80048; 81001; 83605; 85025; 85610; 94640; 96374; 96375; 99285; J1885; J2930; J7050; J7620; 80053; 83880; 87804; A9270-GY

== ENCOUNTER 2017-12-18 14:51 | Emergency (ER) | payer MEDICARE ==
[2017-12-18] MEDS ORDERED: Isosorbide Mononitrate 30 MG Tab.ER PO ONE (15:10)
[2017-12-18 15:56] VITALS: BP 167/75
[2017-12-18] MEDS ORDERED: Potassium Chloride 10 MEQ Tab.ER PO ONE (16:36)
[2017-12-18] MEDS ORDERED: Potassium Chloride 20 MEQ Packet PO SCH (16:45)
--- NOTE | 2017-12-19 09:26 | ER ---
DATE SEEN: 12/18/2017 TIME SEEN: The patient was seen at 1500 hours. HISTORY OF PRESENT ILLNESS: This is a 77-year-old fellow, who is a chronic obstructive lunger for years, very close to 60-pack years of smoking, and comes in with onset of chest pain and more increasing shortness of breath. He has had cough for the last 4 months, and has intermittent cough. He denies diaphoresis or lightheadedness. He has a daily headache, which he is somewhat concerned about. No weakness. No syncope or near syncope. No palpitations. No productive cough. At one time, he was an alcoholic. 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 CURRENT MEDICATIONS: 1. Symbicort. 2. Albuterol. 3. ProAir. 4. Omeprazole. PAST MEDICAL HISTORY: Significant for GERD, cervical spondylosis, COPD, generalized anxiety disorder, chronic low back pain, and tobacco abuse. ALLERGIES: None. REVIEW OF SYSTEMS: Negative except for noted above in the HPI and also past medical history. PHYSICAL EXAMINATION: GENERAL: A pleasant man, in no acute distress. He has a very marked rhinophyoma. It is quite striking. He has also a striking smile and is a very happy fellow. HEENT: TMs are negative. Pharynx without erythema. No cervical adenopathy. NECK: Without bruits. No masses in the neck. Mild tracheal tug. No tracheal deviation. LUNGS: Decreased air exchange in the posterior bases with fine rales heard posteriorly. No wheezes noted. No rhonchi were noted. He has a congested cough when he coughs. HEART: S1 and S2. No murmur. S2 is slightly greater than S1. No arrhythmia noted. ABDOMEN: Soft. No guarding. No abdominal discomfort. No pain. No CVA percussion tenderness. EXTREMITIES: Lower extremities without edema. Dorsalis pedis and radial pulses are normal. DIAGNOSTIC STUDIES: X-ray did not reveal an infiltrate. EKG, sinus rhythm. LABORATORY DATA: Chemistry: Sodium 146, potassium 3.3 (hypokalemia), otherwise rest of the exam is mildly normal, 20 of BUN which is slightly elevated, but not significant degree. Creatinine of 0.8. GFR is greater than 60. BUN and creatinine ratio suggest mild dehydration of 25 with a glucose low at 71. Troponin is less than 0.017. TSH was 0.56. White count 7500, PMNs 61, lymphocytes 10, monos 3, and hemoglobin 14.8. ASSESSMENT: 1. Chronic obstructive lung disease. 2. Mild chest discomfort secondary to this. 3. Pulmonary hypertension secondary to associated with excessive smoking problem and chronic obstructive pulmonary disease for many years. 4. Mild bronchitis with this cough, does not warrant antibiotic. 5. Smoking abuse. 6. Chronic low back pain. 7. Generalized anxiety disorder. 8. Anxiety, etiology indeterminate. PLAN: Trial of Imdur, he was given 30 mg orally. This will diminish his pulmonary hypertension. No other medication is given. The patient is to follow up with his doctor and he can try 2 tabs of Imdur to see if that makes a difference in his breathing. The patient is dismissed to follow up with the doctor in a week, and continue his current medications. /[id number] ELISHA/AGUILAR
--- NOTE | 2017-12-19 11:56 | CR ---
INDICATION: Short of breath, COPD, chest pain. CHEST: PA and lateral views of the chest were obtained 12/18/2017 and compared with 08/24/2017, again revealing a fixed hiatal hernia, which may be slightly more distended than on the previous examination. It is large in size. The heart did not appear enlarged. The aorta is tortuous with calcification in the arch. Overlying EKG leads are noted. Findings compatible with COPD are noted with flattening of diaphragm leaves, prominent AP diameter, and some hyperaeration. An active infiltrate or effusion was not identified. Somewhat diminished bone density is suggested, which could be on the basis of osteoporosis or osteomalacia and should be correlated clinically. There does appear to be a compression fracture of indeterminate age at L1. IMPRESSION: 1. Large fixed hiatal hernia, perhaps slightly more distended than on previous study. 2. ASD aorta. 3. COPD. 4. Diminished bone density compatible with osteoporosis - correlate clinically - with mild anterior vertebral body volume loss at what appears to be L1 of indeterminate age. 5. No acute process. MTDD
== END 2017-12-18 16:50 | disposition home or self-care (01) ==
LOC: FB.ED 14:51
DX: J44.9 Chronic obstructive pulmonary disease, unspecified (principal); J40 Bronchitis, not specified as acute or chronic; I27.20 Pulmonary hypertension, unspecified; F17.210 Nicotine dependence, cigarettes, uncomplicated; M54.5 Low back pain; G89.29 Other chronic pain; F41.1 Generalized anxiety disorder
CPT/HCPCS: 36415; 36600; 71046; 80053; 82803; 83605; 84443; 84484; 85025; 93005; 99285; A9270

== ENCOUNTER 2017-12-28 22:18 | Emergency (ER) | payer MEDICARE ==
[2017-12-28] MEDS ORDERED: Ketorolac 60 MG/2 ML SDV IM ONE (22:53)
--- NOTE | 2017-12-28 22:56 | EDM.PDOC ---
ED HPI GENERAL MEDICAL PROBLEM - General Chief Complaint: Headache Stated Complaint: Headache Time Seen by Provider: 12/28/17 22:52 Source of Information: Reports: Patient History Limitations: Reports: Other (neck pain and headache, worst ever.) - History of Present Illness INITIAL COMMENTS - FREE TEXT/NARRATIVE: 77 y.o.w.m with a H/o HTN came to the ed due to acute onset of neck pain and mid upper mayra pain. SBP was 195 on arrival to the ed. He took his BP meds this am. This the worst pain ever. Pt has similar symptoms 6 months ago, but not as bad. A MRI of head and neck 6 months ago showed severe DDD of his neck. His neck pain and H/A 6 months ago subsided spontaneously. Pt denied any kind of trauma. He was supposed to see a spine clinic, but did not as of now. BP 195/ 97 pulse 55 Temp 36.3 Pulse ox 95% on RA. Onset Date: 12/28/17 Onset Time: 07:00 Duration: Hour(s): Location: Reports: Head Quality: Reports: Ache, Burning, Dull, Pressure, Stabbing, Throbbing Severity: Severe Improves with: Reports: Medication Worsens with: Reports: Movement (of neck) Context: Reports: Other (DDD of C spine) Headache Pain Score (Numeric/FACES): 5 - Related Data Allergies Allergy/AdvReac Type Severity Reaction Status Date / Time No Known Allergies Allergy Verified 12/28/17 23:07 Home Meds: Home Meds Budesonide/Formoterol Fumarate [Symbicort 80-4.5 Mcg Inhaler] 2 puff INH BID [History] Omeprazole [priLOSEC OTC] 20 mg PO DAILY 08/24/17 [History] Albuterol Sulfate [Proair Hfa] 8.5 gm IH Q4HR #1 hfa.aer.ad 08/25/17 [Rx] .Amlodipine 1 tab PO ASDIRECTED 12/28/17 [History] .Terazosin 1 tab PO ASDIRECTED 12/28/17 [History] Past Medical History HEENT History: Reports: Impaired Vision Cardiovascular History: Reports: Hypertension Respiratory History: Reports: COPD, SOB Gastrointestinal History: Reports: GERD Genitourinary History: Reports: BPH Other Genitourinary History: blood in urine past week then better, then came back Musculoskeletal History: Reports: Arthritis, Back Pain, Chronic, Neck Pain, Chronic Neurological History: Reports: None Psychiatric History: Reports: Anxiety Endocrine/Metabolic History: Reports: None Hematologic History: Reports: None Immunologic History: Reports: None Oncologic (Cancer) History: Reports: None Dermatologic History: Reports: None - Infectious Disease History Infectious Disease History: Reports: None - Past Surgical History HEENT Surgical History: Reports: Adenoidectomy, Tonsillectomy Cardiovascular Surgical History: Reports: None GI Surgical History: Reports: Appendectomy Male Surgical History: Reports: Circumcision Social & Family History - Family History Family Medical History: Noncontributory - Tobacco Use Smoking Status *Q: Current Every Day Smoker Years of Tobacco use: 62 Packs/Tins Daily: 0.5 - Caffeine Use Caffeine Use: Reports: Coffee ED ROS GENERAL - Review of Systems Review Of Systems: See Below Constitutional: Reports: No Symptoms HEENT: Reports: No Symptoms Respiratory: Reports: No Symptoms Cardiovascular: Reports: No Symptoms Endocrine: Reports: No Symptoms GI/Abdominal: Reports: No Symptoms : Reports: No Symptoms Musculoskeletal: Reports: No Symptoms Skin: Reports: No Symptoms Neurological: Reports: No Symptoms Psychiatric: Reports: No Symptoms Hematologic/Lymphatic: Reports: No Symptoms Immunologic: Reports: No Symptoms - Physical Exam Exam: See Below Exam Limited By: No Limitations General Appearance: Alert, WD/WN, Moderate Distress Eye Exam: Bilateral Eye: Normal Fundi, Normal Inspection Ears: Normal External Exam, Normal Canal Nose: Normal Inspection, Normal Mucosa, No Blood Throat/Mouth: Normal Lips, Normal Gums, Normal Voice, No Airway Compromise Head Exam: Atraumatic, Normocephalic Neck: Normal Inspection, Supple, Full Range of Motion Respiratory/Chest: No Respiratory Distress, Lungs Clear, Normal Breath Sounds, No Accessory Muscle Use, Chest Non-Tender Cardiovascular: Normal Peripheral Pulses, Regular Rate, Rhythm, No Edema, No Gallop, No JVD GI/Abdominal: Normal Bowel Sounds, Soft, Non-Tender, No Organomegaly, No Distention, No Abnormal Bruit, No Mass, Pelvis Stable (Male) Exam: Deferred Rectal (Males) Exam: Deferred Neuro Exam (Abbreviated): Alert, Oriented, CN II-XII Intact, Normal Cognition, Normal Gait, No Motor/Sensory Deficits Back Exam: Normal Inspection, Full Range of Motion Extremities: Normal Inspection, Normal Range of Motion, Non-Tender, No Pedal Edema, Normal Capillary Refill Psychiatric: Anxious (because of his severe neck pain and headache) Skin Exam: Warm, Dry, Intact, Normal Color, No Rash Course - Vital Signs Text/Narrative:: 77 y.o.w.m with a H/o HTN came to the ed due to acute onset of neck pain and mid upper mayra pain. SBP was 195 on arrival to the ed. He took his BP meds this am. This the worst pain ever. Pt has similar symptoms 6 months ago, but not as bad. A MRI of head and neck 6 months ago showed severe DDD of his neck. His neck pain and H/A 6 months ago subsided spontaneously. Pt denied any kind of trauma. He was supposed to see a spine clinic, but did not as of now. BP 195/ 97 pulse 55 Temp 36.3 Pulse ox 95% on RA. PE: Pt came to the ed with severe neck pain and H/A, worst ever. SBP was 195, no trauma, neck supple, H/O DDD of neck, MRI of head and neck 6 months ago Imaging: CT head neck: DDD of neck with revered lordosis DDx: Muscle spasm, positioning Impression: Tension H/A, DDD of neck, Revered lordosis of neck. Tx; Toradol, ICE did not help, Soft collar and 1 tabl of Percocet Reexam: improved, the pain was now 3/10 (10/10), BP on D/C was 152/82 Plan: D/C with instructions Last Recorded V/S: Last Vital Signs Temp 36.6 C 12/29/17 00:21 Pulse 61 12/29/17 01:00 Resp 18 12/29/17 01:00 BP 152/82 H 12/29/17 01:00 Pulse Ox 100 12/29/17 01:00 - Orders/Labs/Meds Orders: Active Orders 24 hr Category Date Time Status Cervical Spine wo Cont [CT] Stat Exams 12/28/17 22:53 Taken Head wo Cont [CT] Stat Exams 12/28/17 22:53 Taken Labs: Laboratory Tests 12/28/17 Range/Units 23:15 ESR 4 (0-15) mm/hr Meds: Medications Discontinued Medications Generic Name Dose Route Start Last Admin Trade Name Freq PRN Reason Stop Dose Admin Ketorolac Tromethamine 60 mg 12/28/17 22:53 12/28/17 23:00 Toradol IM 12/28/17 22:54 60 mg ONETIME ONE Administration Oxycodone/Acetaminophen 1 tab 12/29/17 00:13 12/29/17 00:33 Percocet 325-5 Mg PO 12/29/17 00:14 1 tab ONETIME ONE Administration Departure - Departure Time of Disposition: 01:22 Disposition: Home, Self-Care 01 Condition: Good Clinical Impression: Tension headache Cervical spine degeneration Qualifiers: Spinal osteoarthritis complication: unspecified spinal osteoarthritis Qualified Code(s): M47.812 - Spondylosis without myelopathy or radiculopathy, cervical region - Discharge Information Referrals: Mayur Mitchell MD [Primary Care Provider] - Forms: ED Department Discharge Additional Instructions: Please were soft collar to neck as needed, take percocet for severe pain only. Please f/u with your marketing services specialist as soon as possible, came back to the ED if your symptoms get worse acutely - My Orders Last 24 Hours: My Active Orders 12/28/17 22:53 Cervical Spine wo Cont [CT] Stat Head wo Cont [CT] Stat - Assessment/Plan Last 24 Hours: My Active Orders 12/28/17 22:53 Cervical Spine wo Cont [CT] Stat Head wo Cont [CT] Stat
[2017-12-29] MEDS ORDERED: Acetaminophen/oxyCODONE 325-5 MG Tab PO ONE ×2 (00:13→01:32)
[2017-12-29 01:53] VITALS: BP 152/82
== END 2017-12-29 01:35 | disposition home or self-care (01) ==
LOC: FB.ED 22:18
DX: G44.209 Tension-type headache, unspecified, not intractable (principal); M50.30 Other cervical disc degeneration, unspecified cervical region; M47.812 Spondylosis without myelopathy or radiculopathy, cervical region; M40.56 Lordosis, unspecified, lumbar region; I10 Essential (primary) hypertension; F17.210 Nicotine dependence, cigarettes, uncomplicated; J44.9 Chronic obstructive pulmonary disease, unspecified; K21.9 Gastro-esophageal reflux disease without esophagitis; Z79.899 Other long term (current) drug therapy
CPT/HCPCS: 36415; 70450; 72125; 85651; 99284; A9270; J1885

== ENCOUNTER 2019-11-26 21:08 | Observation (INO) | payer MEDICARE ==
[2019-11-26] MEDS ORDERED: Ondansetron 4 MG/2 ML SDV IVPUSH ONE (21:17)
[2019-11-26] MEDS ORDERED: Aspirin 81 MG Tab.Chew PO ONE (21:17)
[2019-11-26] MEDS ORDERED: Nitroglycerin 0.4 MG Tab.SL SL ONE (21:17)
[2019-11-26] MEDS ORDERED: methylPREDNISolone Sodium Succinate 125 MG/2 ML SDV IVPUSH ONE (21:19)
[2019-11-26] MEDS ORDERED: Albuterol/Ipratropium 3.0-0.5 MG/3 ML Neb Soln NEB ONE (21:20)
[2019-11-26] MEDS: Sodium Chloride 0.9% 10 ML Syringe FLUSH PRN ×3 (21:21→23:07)
[2019-11-26] MEDS ORDERED: Sodium Chloride 0.9% 10 ML Syringe FLUSH PRN (21:38)
[2019-11-26] MEDS ORDERED: LORazepam 1 MG Tab PO ONE (21:42)
--- NOTE | 2019-11-26 21:44 | EDM.PDOC ---
ED HPI GENERAL MEDICAL PROBLEM - General Chief Complaint: Chest Pain Stated Complaint: CHEST PAIN Time Seen by Provider: 11/26/19 21:20 Source of Information: Reports: Patient History Limitations: Reports: No Limitations - History of Present Illness INITIAL COMMENTS - FREE TEXT/NARRATIVE: Patient presented to the ED because of chest pain which started this morning. It 's a pressure over the sternal area, sometimes it hurts with breathing. He also c/o N/V all day and couldn't keep anything down. He also apparently had 1-2 dark colored emesis but denies any melanotic stools although he c/o epigastric pain as well. - Related Data Allergies Allergy/AdvReac Type Severity Reaction Status Date / Time No Known Allergies Allergy Verified 12/28/17 23:07 Home Meds: Home Meds Budesonide/Formoterol Fumarate [Symbicort 80-4.5 MCG] 2 puff INH BID 08/24/17 [ History] Omeprazole [priLOSEC OTC] 20 mg PO DAILY 08/24/17 [History] Albuterol Sulfate [Proair Hfa] 8.5 gm IH Q4HR #1 hfa.aer.ad 08/25/17 [Rx] .Amlodipine 1 tab PO ASDIRECTED 12/28/17 [History] .Terazosin 1 tab PO ASDIRECTED 12/28/17 [History] Past Medical History HEENT History: Reports: Impaired Vision Cardiovascular History: Reports: Hypertension Respiratory History: Reports: COPD, SOB Gastrointestinal History: Reports: GERD Genitourinary History: Reports: BPH Other Genitourinary History: blood in urine past week then better, then came back Musculoskeletal History: Reports: Arthritis, Back Pain, Chronic, Neck Pain, Chronic Neurological History: Reports: None Psychiatric History: Reports: Anxiety Endocrine/Metabolic History: Reports: None Hematologic History: Reports: None Immunologic History: Reports: None Oncologic (Cancer) History: Reports: None Dermatologic History: Reports: None - Infectious Disease History Infectious Disease History: Reports: None - Past Surgical History HEENT Surgical History: Reports: Adenoidectomy, Tonsillectomy Cardiovascular Surgical History: Reports: None GI Surgical History: Reports: Appendectomy Male Surgical History: Reports: Circumcision Social & Family History - Family History Family Medical History: Noncontributory - Caffeine Use Caffeine Use: Reports: Coffee ED ROS GENERAL - Review of Systems Review Of Systems: See Below Constitutional: Reports: No Symptoms HEENT: Reports: No Symptoms Respiratory: Reports: No Symptoms Cardiovascular: Reports: No Symptoms Endocrine: Reports: No Symptoms GI/Abdominal: Reports: Nausea, Vomiting : Reports: No Symptoms Musculoskeletal: Reports: No Symptoms Skin: Reports: No Symptoms Neurological: Reports: No Symptoms Psychiatric: Reports: No Symptoms ED EXAM, GENERAL - Physical Exam Exam: See Below Exam Limited By: No Limitations General Appearance: Alert, No Apparent Distress Eye Exam: Bilateral Eye: PERRL Ears: Normal External Exam, Normal Canal Nose: Normal Inspection, Normal Mucosa Throat/Mouth: Normal Inspection, Normal Lips, Normal Teeth Head: Atraumatic, Normocephalic Neck: Normal Inspection, Supple, Non-Tender, Full Range of Motion Respiratory/Chest: No Respiratory Distress, Lungs Clear, Normal Breath Sounds Cardiovascular: Normal Peripheral Pulses, Regular Rate, Rhythm, No Edema, No Gallop, No JVD, No Murmur, No Rub GI/Abdominal: Normal Bowel Sounds, Soft, No Organomegaly, Other (epigastric tenderness) Back Exam: Normal Inspection, Full Range of Motion Extremities: Normal Inspection, Normal Range of Motion Neurological: Alert, Oriented, CN II-XII Intact, Normal Cognition Psychiatric: Normal Affect, Normal Mood Skin Exam: Warm, Dry Course - Vital Signs Text/Narrative:: Labs/EKG/CXR was discussed with the patient and verbalized full understanding EKG-NSR Trop neg CXR-NAD ASA 324 mg PO x1 NTG SL x1 ativan 1 mg PO x1 morphine 2 mg IV duoneb x1 solumedrol 125 mg IV x1 NS 1 L bolus Last Recorded V/S: Last Vital Signs Temp Pulse Resp BP 135/98 H 11/26/19 21:24 Pulse Ox 91 L 11/26/19 21:15 - Orders/Labs/Meds Orders: Active Orders 24 hr Category Date Time Status EKG Documentation Completion [RC] ASDIRECTED Care 11/26/19 21:16 Ordered RT Aerosol Therapy [RC] ASDIRECTED Care 11/26/19 21:20 Ordered Chest 1V Frontal [CR] Stat Exams 11/26/19 21:16 Ordered D-DIMER QUANTITATIVE [COAG] Stat Lab 11/26/19 21:16 Ordered INR,PT,PROTHROMBIN TIME [COAG] Stat Lab 11/26/19 21:20 Ordered PTT,PARTIAL THROMBOPLSTIN TIME [COAG] Stat Lab 11/26/19 21:20 Ordered Morphine Med 11/26/19 21:48 Once 2 mg IVPUSH ONETIME ONE Sodium Chloride 0.9% [Normal Saline] 1,000 ml Med 11/26/19 21:45 Ordered IV ASDIRECTED Sodium Chloride 0.9% [Normal Saline] 1,000 ml Med 11/26/19 21:45 Ordered IV ASDIRECTED Sodium Chloride 0.9% [Saline Flush] Med 11/26/19 21:15 Ordered 10 ml FLUSH ASDIRECTED PRN Sodium Chloride 0.9% [Saline Flush] Med 11/26/19 21:38 Ordered 10 ml FLUSH ASDIRECTED PRN Saline Lock Insert [OM.PC] Routine Oth 11/26/19 21:15 Ordered Saline Lock Insert [OM.PC] Routine Oth 11/26/19 21:38 Ordered EKG 12 Lead [EK] Routine Ther 11/26/19 21:16 Ordered Medication Orders Sodium Chloride (Normal Saline) 1,000 mls @ 500 mls/hr IV ASDIRECTED KRISH Sodium Chloride (Normal Saline) 1,000 mls @ 999 mls/hr IV ASDIRECTED KRISH Last Admin: 11/26/19 21:32 Dose: 999 mls/hr Sodium Chloride (Saline Flush) 10 ml FLUSH ASDIRECTED PRN PRN Reason: Keep Vein Open Last Admin: 11/26/19 21:28 Dose: 10 ml Admin: 11/26/19 21:21 Dose: 10 ml Sodium Chloride (Saline Flush) 10 ml FLUSH ASDIRECTED PRN PRN Reason: Keep Vein Open Labs: Laboratory Tests 11/26/19 11/26/19 11/26/19 Range/Units 21:18 21:18 21:18 WBC 15.3 H (4.5-12.0) X10-3/uL RBC 3.85 L (4.30-5.75) x10(6)uL Hgb 12.1 L (13.5-17.8) g/dL Hct 35.7 (30.0-51.3) % MCV 92.8 (80-96) fL MCH 31.4 (27.7-33.6) pg MCHC 33.9 (32.2-35.4) g/dL RDW 13.9 (11.5-15.5) % Plt Count 277 (125-369) X10(3)uL MPV 7.3 L (7.4-10.4) fL Neut % (Auto) 75.1 (46-82) % Lymph % (Auto) 16.8 (13-37) % Motley % (Auto) 7.8 (4-12) % Eos % (Auto) 0 L (1.0-5.0) % Baso % (Auto) 0 (0-2) % Neut # (Auto) 11.5 H (1.6-8.3) # Lymph # (Auto) 2.6 (0.6-5.0) # Motley # (Auto) 1.2 (0.0-1.3) # Eos # (Auto) 0.0 (0.0-0.8) # Baso # (Auto) 0.0 (0.0-0.2) # Sodium 143 (135-145) mmol/L Potassium 3.5 (3.5-5.3) mmol/L Chloride 102 D (100-110) mmol/L Carbon Dioxide 31 (21-32) mmol/L BUN 70 H D (7-18) mg/dL Creatinine 1.5 H (0.70-1.30) mg/dL Est Cr Clr Drug Dosing TNP Estimated GFR (MDRD) 45 L (>60) BUN/Creatinine Ratio 46.7 H (9-20) Glucose 141 H (80-116) mg/dL Calcium 11.1 H D (8.6-10.2) mg/dL Total Bilirubin 0.5 (0.1-1.3) mg/dL AST 24 D (5-25) IU/L ALT 37 H D (12-36) U/L Alkaline Phosphatase 67 (56-112) IU/L Troponin I 8.5 (4.0-60.3) pg/mL NT-Pro-B Natriuret Pep 43 (<=450) pg/mL Total Protein 7.1 (6.0-8.0) g/dL Albumin 3.8 (3.2-4.6) g/dL Globulin 3.3 g/dL Albumin/Globulin Ratio 1.2 Meds: Medications Generic Name Dose Route Start Last Admin Trade Name Freq PRN Reason Stop Dose Admin Sodium Chloride 1,000 mls @ 500 mls/hr 11/26/19 21:45 Normal Saline IV ASDIRECTED KRISH Sodium Chloride 1,000 mls @ 999 mls/hr 11/26/19 21:45 11/26/19 21:32 Normal Saline IV 999 mls/hr ASDIRECTED KRISH Administration Sodium Chloride 10 ml 11/26/19 21:15 11/26/19 21:28 Saline Flush FLUSH 10 ml ASDIRECTED PRN Administration Keep Vein Open Sodium Chloride 10 ml 11/26/19 21:38 Saline Flush FLUSH ASDIRECTED PRN Keep Vein Open Discontinued Medications Generic Name Dose Route Start Last Admin Trade Name Freq PRN Reason Stop Dose Admin Albuterol/Ipratropium 3 ml 11/26/19 21:20 11/26/19 21:28 Duoneb 3.0-0.5 Mg/3 Ml NEB 11/26/19 21:21 3 ml ONETIME ONE Administration Aspirin 324 mg 11/26/19 21:17 11/26/19 21:24 Aspirin PO 11/26/19 21:18 324 mg ONETIME ONE Administration Lorazepam 1 mg 11/26/19 21:42 Ativan PO 11/26/19 21:43 ONETIME ONE Methylprednisolone Sodium Succinate 125 mg 11/26/19 21:19 11/26/19 21:28 Solu-Medrol IVPUSH 11/26/19 21:20 125 mg ONETIME ONE Administration Nitroglycerin 0.4 mg 11/26/19 21:17 11/26/19 21:24 Nitrostat SL 11/26/19 21:18 0.4 mg ONETIME ONE Administration Ondansetron HCl 4 mg 11/26/19 21:17 11/26/19 21:21 Zofran IVPUSH 11/26/19 21:18 4 mg ONETIME ONE Administration Departure - Departure Time of Disposition: 21:55 Disposition: Refer to Observation Condition: Good Clinical Impression: Dehydration, TONG (acute kidney injury), Chest pain, Anxiety COPD (chronic obstructive pulmonary disease) Qualifiers: COPD type: chronic bronchitis Forms: ED Department Discharge Sepsis Event Note - Focused Exam Vital Signs: Vital Signs BP Pulse Ox 11/26/19 21:24 135/98 H 11/26/19 21:15 91 L Date Exam was Performed: 11/26/19 Time Exam was Performed: 21:49 - My Orders Last 24 Hours: My Active Orders 11/26/19 21:15 Sodium Chloride 0.9% [Saline Flush] 10 ml FLUSH ASDIRECTED PRN Saline Lock Insert [OM.PC] Routine 11/26/19 21:16 EKG Documentation Completion [RC] ASDIRECTED Chest 1V Frontal [CR] Stat D-DIMER QUANTITATIVE [COAG] Stat EKG 12 Lead [EK] Routine 11/26/19 21:20 RT Aerosol Therapy [RC] ASDIRECTED INR,PT,PROTHROMBIN TIME [COAG] Stat PTT,PARTIAL THROMBOPLSTIN TIME [COAG] Stat 11/26/19 21:38 Sodium Chloride 0.9% [Saline Flush] 10 ml FLUSH ASDIRECTED PRN Saline Lock Insert [OM.PC] Routine 11/26/19 21:45 Sodium Chloride 0.9% [Normal Saline] 1,000 ml IV ASDIRECTED Sodium Chloride 0.9% [Normal Saline] 1,000 ml IV ASDIRECTED 11/26/19 21:48 Morphine 2 mg IVPUSH ONETIME ONE - Assessment/Plan Last 24 Hours: My Active Orders 11/26/19 21:15 Sodium Chloride 0.9% [Saline Flush] 10 ml FLUSH ASDIRECTED PRN Saline Lock Insert [OM.PC] Routine 11/26/19 21:16 EKG Documentation Completion [RC] ASDIRECTED Chest 1V Frontal [CR] Stat D-DIMER QUANTITATIVE [COAG] Stat EKG 12 Lead [EK] Routine 11/26/19 21:20 RT Aerosol Therapy [RC] ASDIRECTED INR,PT,PROTHROMBIN TIME [COAG] Stat PTT,PARTIAL THROMBOPLSTIN TIME [COAG] Stat 11/26/19 21:38 Sodium Chloride 0.9% [Saline Flush] 10 ml FLUSH ASDIRECTED PRN Saline Lock Insert [OM.PC] Routine 11/26/19 21:45 Sodium Chloride 0.9% [Normal Saline] 1,000 ml IV ASDIRECTED Sodium Chloride 0.9% [Normal Saline] 1,000 ml IV ASDIRECTED 11/26/19 21:48 Morphine 2 mg IVPUSH ONETIME ONE
[2019-11-26] MEDS ORDERED: Sodium Chloride 0.9% 1,000 ML IV SCH ×3 (21:45→22:45)
[2019-11-26] MEDS ORDERED: Morphine 2 MG/ML Syringe IVPUSH ONE (21:48)
[2019-11-26] MEDS ORDERED: Docusate Sodium 100 MG Cap PO PRN (21:59)
[2019-11-26] MEDS ORDERED: Pantoprazole 40 MG Vial IVPUSH ONE (22:11)
[2019-11-26] MEDS ORDERED: LORazepam 1 MG Tab PO PRN (22:13)
[2019-11-26] MEDS ORDERED: Albuterol 8 GM Inhaler INH PRN (22:13)
[2019-11-26] MEDS ORDERED: TERAZOSIN PO SCH (22:15)
[2019-11-26] MEDS ORDERED: AMLODIPINE PO SCH (22:15)
[2019-11-27] MEDS ORDERED: Lidocaine 2% HCl 6 ML JEL.PF.APP ONE ×2 (06:15→06:30)
[2019-11-27] MEDS ORDERED: Lidocaine 2% Jelly 30 ML Tube MUCMEM SCH (06:15)
[2019-11-27] MEDS: Albuterol/Ipratropium 3.0-0.5 MG/3 ML Neb Soln NEB SCH ×2 (07:58→10:25)
--- NOTE | 2019-11-27 08:59 | PCM.HP.2 ---
H&P History of Present Illness - General Date of Service: 11/27/19 Admit Problem/Dx: Admission Diagnosis/Problem Admission Diagnosis/Problem Chest pain Source of Information: Patient, Old Records History Limitations: Reports: No Limitations - History of Present Illness Initial Comments - Free Text/Narative: This is an 79-year-old male patient with a long-standing history of smoking came to the ER because of multiple complaints. Says he had some chest pain that was worse with deep inspiration and eating and especially drinking orange juice. It did not radiate anywhere. He had a little nauseated and vomited 1. He 's always short of breath that he smoked for over 60 years and continues to smoke a pack a day which is cut down to recently. He has a dry cough with no sputum. Denies wheezing, runny nose, sore throat, fevers. He also has not been able to move his bowels for 3-5 days and is been using lots of laxatives. Denies been on any narcotics. Always has problems with constipation. He has MiraLAX at home but does not use it. So he states that he is not able to move his urine very well. And when he was in the hospital overnight he had a be Because he had 900 mL residual in his bladder. He says he's had to have a catheter in place when he goes over the past. He has no exposures to coronavirus 19. Chest Pain Score (Numeric/FACES): 8 - Related Data Allergies/Adverse Reactions: Allergies Allergy/AdvReac Type Severity Reaction Status Date / Time No Known Allergies Allergy Verified 11/26/19 21:55 Home Medications: Home Meds Budesonide/Formoterol Fumarate [Symbicort 80-4.5 MCG] 2 puff INH BID 08/24/17 [ History] Omeprazole [priLOSEC OTC] 20 mg PO DAILY 08/24/17 [History] Albuterol Sulfate [Proair Hfa] 8.5 gm IH Q4HR PRN 11/26/19 [History] Aspirin [Aspirin EC] 325 mg PO DAILY 11/27/19 [History] Cyclobenzaprine [Flexeril] 10 mg PO BEDTIME PRN 11/27/19 [History] Naproxen [Naprosyn] 500 mg PO BID PRN 11/27/19 [History] Terazosin [Hytrin] 2 mg PO BEDTIME 11/27/19 [History] amLODIPine Besylate [Amlodipine Besylate] 10 mg PO DAILY 11/27/19 [History] hydroCHLOROthiazide [Hydrochlorothiazide] 25 mg PO DAILY 11/27/19 [History] traMADol [Ultram] 50 mg PO Q6H PRN 11/27/19 [History] Past Medical History HEENT History: Reports: Impaired Vision Cardiovascular History: Reports: Hypertension Respiratory History: Reports: COPD, SOB Gastrointestinal History: Reports: GERD Genitourinary History: Reports: BPH, Prostate Disorder Other Genitourinary History: blood in urine past week then better, then came back Musculoskeletal History: Reports: Arthritis, Back Pain, Chronic, Neck Pain, Chronic Neurological History: Reports: Headaches, Chronic, Other (See Below) Other Neuro History: takes tylenol for headaches Psychiatric History: Reports: Addiction, Anxiety, Depression Endocrine/Metabolic History: Reports: None Hematologic History: Reports: None Immunologic History: Reports: None Oncologic (Cancer) History: Reports: None Dermatologic History: Reports: None - Infectious Disease History Infectious Disease History: Reports: Measles - Past Surgical History Head Surgeries/Procedures: Reports: None HEENT Surgical History: Reports: Adenoidectomy, Oral Surgery, Tonsillectomy Cardiovascular Surgical History: Reports: None Respiratory Surgical History: Reports: None GI Surgical History: Reports: Appendectomy, Colonoscopy Male Surgical History: Reports: Circumcision Endocrine Surgical History: Reports: None Neurological Surgical History: Reports: None Musculoskeletal Surgical History: Reports: None Dermatological Surgical History: Reports: None Social & Family History - Family History Family Medical History: Noncontributory - Tobacco Use Smoking Status *Q: Heavy Tobacco Smoker Years of Tobacco use: 65 Packs/Tins Daily: 1 Second Hand Smoke Exposure: No - Caffeine Use Caffeine Use: Reports: Coffee, Soda - Recreational Drug Use Recreational Drug Use: No H&P Review of Systems - Review of Systems: Review Of Systems: See Below General: Reports: No Symptoms HEENT: Reports: No Symptoms Pulmonary: Reports: Shortness of Breath, Cough Cardiovascular: Reports: Chest Pain, Dyspnea on Exertion. Denies: Edema Gastrointestinal: Reports: No Symptoms Genitourinary: Reports: Retention. Denies: Dysuria, Frequency, Burning, Pain, Urgency Musculoskeletal: Reports: No Symptoms Skin: Reports: No Symptoms Psychiatric: Reports: No Symptoms Neurological: Reports: No Symptoms Hematologic/Lymphatic: Reports: No Symptoms Immunologic: Reports: No Symptoms Exam - Exam Exam: See Below - Vital Signs Vital Signs: Last Vital Signs Temp 98.3 F 11/27/19 03:00 Pulse 84 11/27/19 03:00 Resp 20 11/27/19 03:00 BP 126/72 11/27/19 03:00 Pulse Ox 92 L 11/27/19 03:00 Weight: 177 lb 8 oz - Exam General: Alert, Oriented, Cooperative HEENT: Hearing Intact, Posterior Pharynx Clear, TMs Clear Neck: Supple, Trachea Midline Lungs: Normal Respiratory Effort, Decreased Breath Sounds, Wheezing Cardiovascular: Regular Rate, Regular Rhythm, Systolic Murmur GI/Abdominal Exam: Normal Bowel Sounds, Soft, Non-Tender, No Organomegaly, No Distention, No Abnormal Bruit, No Mass Back Exam: Normal Inspection, Full Range of Motion Extremities: Non-Tender, No Pedal Edema Skin: Warm, Dry, Intact Neurological: Normal Speech, Normal Tone Neuro Extensive - Mental Status: Alert, Oriented x3, Normal Mood/Affect, Normal Cognition Psychiatric: Alert, Normal Affect, Normal Mood - Patient Data Lab Results Last 24 hrs: Laboratory Results - last 24 hr 11/26/19 11/26/19 11/26/19 Range/Units 21:18 21:18 21:18 WBC 15.3 H (4.5-12.0) X10-3/uL RBC 3.85 L (4.30-5.75) x10(6)uL Hgb 12.1 L (13.5-17.8) g/dL Hct 35.7 (30.0-51.3) % MCV 92.8 (80-96) fL MCH 31.4 (27.7-33.6) pg MCHC 33.9 (32.2-35.4) g/dL RDW 13.9 (11.5-15.5) % Plt Count 277 (125-369) X10(3)uL MPV 7.3 L (7.4-10.4) fL Neut % (Auto) 75.1 (46-82) % Lymph % (Auto) 16.8 (13-37) % [place] % (Auto) 7.8 (4-12) % Eos % (Auto) 0 L (1.0-5.0) % Baso % (Auto) 0 (0-2) % Neut # (Auto) 11.5 H (1.6-8.3) # Lymph # (Auto) 2.6 (0.6-5.0) # [place] # (Auto) 1.2 (0.0-1.3) # Eos # (Auto) 0.0 (0.0-0.8) # Baso # (Auto) 0.0 (0.0-0.2) # PT (9.0-11.1) sec INR (1.00-1.24) APTT (24.4-33.2) SECONDS D-Dimer, Quantitative (0.0-0.59) mg/LFEU Sodium 143 (135-145) mmol/L Potassium 3.5 (3.5-5.3) mmol/L Chloride 102 D (100-110) mmol/L Carbon Dioxide 31 (21-32) mmol/L BUN 70 H D (7-18) mg/dL Creatinine 1.5 H (0.70-1.30) mg/dL Est Cr Clr Drug Dosing TNP Estimated GFR (MDRD) 45 L (>60) BUN/Creatinine Ratio 46.7 H (9-20) Glucose 141 H (80-116) mg/dL Calcium 11.1 H D (8.6-10.2) mg/dL Total Bilirubin 0.5 (0.1-1.3) mg/dL AST 24 D (5-25) IU/L ALT 37 H D (12-36) U/L Alkaline Phosphatase 67 (56-112) IU/L Troponin I 8.5 (4.0-60.3) pg/mL NT-Pro-B Natriuret Pep 43 (<=450) pg/mL Total Protein 7.1 (6.0-8.0) g/dL Albumin 3.8 (3.2-4.6) g/dL Globulin 3.3 g/dL Albumin/Globulin Ratio 1.2 Urine Color (YELLOW) Urine Appearance (CLEAR) Urine pH (5.0-6.5) Ur Specific Davis (1.010-1.025) Urine Protein (NEGATIVE) mg/dL Urine Glucose (UA) (NORMAL) mg/dL Urine Ketones (NEGATIVE) mg/dL Urine Occult Blood (NEGATIVE) Urine Nitrite (NEGATIVE) Urine Bilirubin (NEGATIVE) Urine Urobilinogen (NEGATIVE) mg/dL Ur Leukocyte Esterase (NEGATIVE) Urine RBC (0-5) 11/26/19 11/26/19 11/26/19 Range/Units 21:18 21:18 23:00 WBC (4.5-12.0) X10-3/uL RBC (4.30-5.75) x10(6)uL Hgb (13.5-17.8) g/dL Hct (30.0-51.3) % MCV (80-96) fL MCH (27.7-33.6) pg MCHC (32.2-35.4) g/dL RDW (11.5-15.5) % Plt Count (125-369) X10(3)uL MPV (7.4-10.4) fL Neut % (Auto) (46-82) % Lymph % (Auto) (13-37) % [place] % (Auto) (4-12) % Eos % (Auto) (1.0-5.0) % Baso % (Auto) (0-2) % Neut # (Auto) (1.6-8.3) # Lymph # (Auto) (0.6-5.0) # [place] # (Auto) (0.0-1.3) # Eos # (Auto) (0.0-0.8) # Baso # (Auto) (0.0-0.2) # PT 10.8 (9.0-11.1) sec INR 1.00 (1.00-1.24) APTT 21.5 L (24.4-33.2) SECONDS D-Dimer, Quantitative 0.65 H (0.0-0.59) mg/LFEU Sodium (135-145) mmol/L Potassium (3.5-5.3) mmol/L Chloride (100-110) mmol/L Carbon Dioxide (21-32) mmol/L BUN (7-18) mg/dL Creatinine (0.70-1.30) mg/dL Est Cr Clr Drug Dosing Estimated GFR (MDRD) (>60) BUN/Creatinine Ratio (9-20) Glucose (80-116) mg/dL Calcium (8.6-10.2) mg/dL Total Bilirubin (0.1-1.3) mg/dL AST (5-25) IU/L ALT (12-36) U/L Alkaline Phosphatase (56-112) IU/L Troponin I 8.5 (4.0-60.3) pg/mL NT-Pro-B Natriuret Pep (<=450) pg/mL Total Protein (6.0-8.0) g/dL Albumin (3.2-4.6) g/dL Globulin g/dL Albumin/Globulin Ratio Urine Color (YELLOW) Urine Appearance (CLEAR) Urine pH (5.0-6.5) Ur Specific Davis (1.010-1.025) Urine Protein (NEGATIVE) mg/dL Urine Glucose (UA) (NORMAL) mg/dL Urine Ketones (NEGATIVE) mg/dL Urine Occult Blood (NEGATIVE) Urine Nitrite (NEGATIVE) Urine Bilirubin (NEGATIVE) Urine Urobilinogen (NEGATIVE) mg/dL Ur Leukocyte Esterase (NEGATIVE) Urine RBC (0-5) 11/27/19 11/27/19 11/27/19 Range/Units 06:07 06:07 06:07 WBC 12.2 H (4.5-12.0) X10-3/uL RBC 3.22 L (4.30-5.75) x10(6)uL Hgb 10.0 L (13.5-17.8) g/dL Hct 30.2 (30.0-51.3) % MCV 93.7 (80-96) fL MCH 31.1 (27.7-33.6) pg MCHC 33.2 (32.2-35.4) g/dL RDW 14.0 (11.5-15.5) % Plt Count 218 (125-369) X10(3)uL MPV (7.4-10.4) fL Neut % (Auto) (46-82) % Lymph % (Auto) (13-37) % [place] % (Auto) (4-12) % Eos % (Auto) (1.0-5.0) % Baso % (Auto) (0-2) % Neut # (Auto) (1.6-8.3) # Lymph # (Auto) (0.6-5.0) # [place] # (Auto) (0.0-1.3) # Eos # (Auto) (0.0-0.8) # Baso # (Auto) (0.0-0.2) # PT (9.0-11.1) sec INR (1.00-1.24) APTT (24.4-33.2) SECONDS D-Dimer, Quantitative (0.0-0.59) mg/LFEU Sodium 143 (135-145) mmol/L Potassium 3.8 (3.5-5.3) mmol/L Chloride 106 (100-110) mmol/L Carbon Dioxide 29 (21-32) mmol/L BUN 64 H (7-18) mg/dL Creatinine 1.2 (0.70-1.30) mg/dL Est Cr Clr Drug Dosing 49.85 Estimated GFR (MDRD) 58 L (>60) BUN/Creatinine Ratio 53.3 H (9-20) Glucose 184 H (80-116) mg/dL Calcium 9.2 (8.6-10.2) mg/dL Total Bilirubin (0.1-1.3) mg/dL AST (5-25) IU/L ALT (12-36) U/L Alkaline Phosphatase (56-112) IU/L Troponin I 8.9 (4.0-60.3) pg/mL NT-Pro-B Natriuret Pep (<=450) pg/mL Total Protein (6.0-8.0) g/dL Albumin (3.2-4.6) g/dL Globulin g/dL Albumin/Globulin Ratio Urine Color (YELLOW) Urine Appearance (CLEAR) Urine pH (5.0-6.5) Ur Specific Davis (1.010-1.025) Urine Protein (NEGATIVE) mg/dL Urine Glucose (UA) (NORMAL) mg/dL Urine Ketones (NEGATIVE) mg/dL Urine Occult Blood (NEGATIVE) Urine Nitrite (NEGATIVE) Urine Bilirubin (NEGATIVE) Urine Urobilinogen (NEGATIVE) mg/dL Ur Leukocyte Esterase (NEGATIVE) Urine RBC (0-5) 11/27/19 Range/Units 06:40 WBC (4.5-12.0) X10-3/uL RBC (4.30-5.75) x10(6)uL Hgb (13.5-17.8) g/dL Hct (30.0-51.3) % MCV (80-96) fL MCH (27.7-33.6) pg MCHC (32.2-35.4) g/dL RDW (11.5-15.5) % Plt Count (125-369) X10(3)uL MPV (7.4-10.4) fL Neut % (Auto) (46-82) % Lymph % (Auto) (13-37) % [place] % (Auto) (4-12) % Eos % (Auto) (1.0-5.0) % Baso % (Auto) (0-2) % Neut # (Auto) (1.6-8.3) # Lymph # (Auto) (0.6-5.0) # [place] # (Auto) (0.0-1.3) # Eos # (Auto) (0.0-0.8) # Baso # (Auto) (0.0-0.2) # PT (9.0-11.1) sec INR (1.00-1.24) APTT (24.4-33.2) SECONDS D-Dimer, Quantitative (0.0-0.59) mg/LFEU Sodium (135-145) mmol/L Potassium (3.5-5.3) mmol/L Chloride (100-110) mmol/L Carbon Dioxide (21-32) mmol/L BUN (7-18) mg/dL Creatinine (0.70-1.30) mg/dL Est Cr Clr Drug Dosing Estimated GFR (MDRD) (>60) BUN/Creatinine Ratio (9-20) Glucose (80-116) mg/dL Calcium (8.6-10.2) mg/dL Total Bilirubin (0.1-1.3) mg/dL AST (5-25) IU/L ALT (12-36) U/L Alkaline Phosphatase (56-112) IU/L Troponin I (4.0-60.3) pg/mL NT-Pro-B Natriuret Pep (<=450) pg/mL Total Protein (6.0-8.0) g/dL Albumin (3.2-4.6) g/dL Globulin g/dL Albumin/Globulin Ratio Urine Color Red (YELLOW) Urine Appearance Cloudy (CLEAR) Urine pH 5.0 (5.0-6.5) Ur Specific Davis 1.020 (1.010-1.025) Urine Protein Trace (NEGATIVE) mg/dL Urine Glucose (UA) Normal (NORMAL) mg/dL Urine Ketones Negative (NEGATIVE) mg/dL Urine Occult Blood Large H (NEGATIVE) Urine Nitrite Negative (NEGATIVE) Urine Bilirubin Negative (NEGATIVE) Urine Urobilinogen Normal (NEGATIVE) mg/dL Ur Leukocyte Esterase Negative (NEGATIVE) Urine RBC Packed H (0-5) Result Diagrams: 11/27/19 06:07 11/27/19 06:07 Sepsis Event Note - Evaluation Sepsis Screening Result: No Definite Risk - Focused Exam Vital Signs: Vital Signs Temp Pulse Resp BP BP Pulse Ox Pulse Ox 11/27/19 03:00 98.3 F 84 20 126/72 92 L 11/27/19 01:00 83 L 11/27/19 00:05 93 L 11/26/19 22:44 98.3 F 88 18 151/84 H 93 L 93 L 11/26/19 21:28 95 11/26/19 21:24 135/98 H 11/26/19 21:15 91 L 11/26/19 21:08 98.5 F 88 16 169/94 H 97 Date Exam was Performed: 11/27/19 Time Exam was Performed: 08:53 - Problem List (1) Anemia SNOMED Code(s): 911046057 ICD Code: D64.9 - ANEMIA, UNSPECIFIED Status: Acute Current Visit: Yes (2) Palliative care status SNOMED Code(s): 362699947 ICD Code: Z51.5 - ENCOUNTER FOR PALLIATIVE CARE Status: Acute Current Visit: Yes (3) Constipation SNOMED Code(s): 19662994 ICD Code: K59.00 - CONSTIPATION, UNSPECIFIED Status: Acute Current Visit : Yes (4) Urinary retention SNOMED Code(s): 325804967 ICD Code: R33.9 - RETENTION OF URINE, UNSPECIFIED Status: Acute Current Visit: Yes (5) TONG (acute kidney injury) SNOMED Code(s): 57634165, 99142643 ICD Code: N17.9 - ACUTE KIDNEY FAILURE, UNSPECIFIED Status: Acute Current Visit: Yes (6) Anxiety SNOMED Code(s): 05533332 ICD Code: F41.9 - ANXIETY DISORDER, UNSPECIFIED Status: Acute Current Visit: Yes (7) Chest pain SNOMED Code(s): 27003941 ICD Code: R07.9 - CHEST PAIN, UNSPECIFIED Status: Acute Current Visit: Yes (8) COPD (chronic obstructive pulmonary disease) with chronic bronchitis SNOMED Code(s): 290598686 ICD Code: J44.9 - CHRONIC OBSTRUCTIVE PULMONARY DISEASE, UNSPECIFIED Status : Acute Current Visit: No (9) Hematuria SNOMED Code(s): 38537357 ICD Code: R31.9 - HEMATURIA, UNSPECIFIED Status: Acute Current Visit: No (10) Tobacco abuse SNOMED Code(s): 195415056 ICD Code: Z72.0 - TOBACCO USE Status: Acute Current Visit: No (11) Hypoxia SNOMED Code(s): 675328511 ICD Code: R09.02 - HYPOXEMIA Status: Acute Current Visit: Yes Problem List Initiated/Reviewed/Updated: Yes Orders Last 24hrs: Active Orders 24 hr Category Date Time Status Patient Status [ADT] Routine ADT 11/26/19 21:59 Active Bladder Scan [RC] ASDIRECTED Care 11/27/19 06:02 Active Height and Weight [RC] DAILY Care 11/26/19 21:59 Active Insert Urinary Catheter [OM.PC] Q24H Care 11/27/19 06:15 Ordered Oxygen Therapy [RC] PRN Care 11/26/19 21:59 Active RT Aerosol Therapy [RC] ASDIRECTED Care 11/26/19 21:20 Active Up With Assistance [RC] ASDIRECTED Care 11/26/19 21:59 Active Urinary Catheter Assessment [RC] QSHIFT Care 11/27/19 06:03 Active VTE/DVT Education [RC] Per Unit Routine Care 11/26/19 21:59 Active Vital Signs [RC] Q4H Care 11/26/19 21:59 Active Chest 1V Frontal [CR] Stat Exams 11/26/19 21:16 Taken .Amlodipine Med 11/26/19 22:15 Pending 1 tab PO ASDIRECTED .Terazosin Med 11/26/19 22:15 Pending 1 tab PO ASDIRECTED Albuterol [Ventolin HFA] Med 11/26/19 22:13 Pending 8.5 gm INH Q4HR PRN Albuterol/Ipratropium [DuoNeb 3.0-0.5 MG/3 ML] Med 11/27/19 07:00 Active 3 ml NEB QIDRT Budesonide/Formoterol Fumarate [Symbicort 80-4.5 MCG] Med 11/27/19 09:00 Pending 2 puff INH BID Docusate Sodium [Colace] Med 11/26/19 21:59 Active 100 mg PO BID PRN LORazepam [Ativan] Med 11/26/19 22:13 Active 1 mg PO Q8H PRN Lidocaine 2% [Xylocaine 2% Jelly] Med 11/27/19 06:15 Active 1 ml MUCMEM ASDIRECTED Pantoprazole [ProTONIX IV] Med 11/27/19 09:00 Active 40 mg IVPUSH DAILY Sodium Chloride 0.9% [Normal Saline] 1,000 ml Med 11/26/19 21:45 Active IV ASDIRECTED Sodium Chloride 0.9% [Normal Saline] 1,000 ml Med 11/26/19 22:45 Active IV ASDIRECTED Sodium Chloride 0.9% [Saline Flush] Med 11/26/19 21:15 Active 10 ml FLUSH ASDIRECTED PRN Sodium Chloride 0.9% [Saline Flush] Med 11/26/19 21:38 Active 10 ml FLUSH ASDIRECTED PRN Saline Lock Insert [OM.PC] Routine Oth 11/26/19 21:15 Ordered Saline Lock Insert [OM.PC] Routine Oth 11/26/19 21:38 Ordered Resuscitation Status Routine Resus Stat 11/26/19 21:59 Ordered EKG 12 Lead [EK] Routine Ther 11/26/19 21:16 Ordered EKG 12 Lead [EK] Routine Ther 11/26/19 23:20 Ordered Medication Orders Albuterol (Ventolin Hfa) 8.5 gm INH Q4HR PRN PRN Reason: Shortness of Breath Albuterol/Ipratropium (Duoneb 3.0-0.5 Mg/3 Ml) 3 ml NEB QIDRT [facility] Last Admin: 11/27/19 07:58 Dose: Not Given Docusate Sodium (Colace) 100 mg PO BID PRN PRN Reason: Constipation Sodium Chloride (Normal Saline) 1,000 mls @ 999 mls/hr IV ASDIRECTED [facility] Last Admin: 11/26/19 21:32 Dose: 999 mls/hr Sodium Chloride (Normal Saline) 1,000 mls @ 125 mls/hr IV ASDIRECTED [facility] Last Admin: 11/27/19 00:42 Dose: 125 mls/hr Lidocaine HCl (Xylocaine 2% Jelly) 1 ml MUCMEM ASDIRECTED [facility]ISH Lorazepam (Ativan) 1 mg PO Q8H PRN PRN Reason: Anxiety Non-Formulary Medication (.Amlodipine) 1 tab PO ASDIRECTED KRISH Non-Formulary Medication (.Terazosin) 1 tab PO ASDIRECTED KRISH Non-Formulary Medication (Budesonide/Formoterol Fumarate [Symbicort 80-4.5 Mcg] ) 2 puff INH BID KRISH Pantoprazole Sodium (Protonix Iv) 40 mg IVPUSH DAILY KRISH Sodium Chloride (Saline Flush) 10 ml FLUSH ASDIRECTED PRN PRN Reason: Keep Vein Open Last Admin: 11/26/19 23:07 Dose: 10 ml Admin: 11/26/19 21:28 Dose: 10 ml Admin: 11/26/19 21:21 Dose: 10 ml Sodium Chloride (Saline Flush) 10 ml FLUSH ASDIRECTED PRN PRN Reason: Keep Vein Open Assessment/Plan Comment:: 1. Admit for observation with serial EKGs and troponins. 2. Patient requests to be a DNR. 3. Lovenox for clot prophylaxis. 4. Oxygen nasal cannula to keep sats proximally 90%. 5. Regular diet 6. Miralax and the suppository for constipation 7. Prednisone for COPD 8. Zithromax and doxycycline for COPD and bronchitis. 9. Continue indwelling catheter and he probably go home with this for now. - Mortality Measure Prognosis:: Good
[2019-11-27] MEDS ORDERED: Pantoprazole 40 MG Vial IVPUSH SCH (09:00)
[2019-11-27] MEDS ORDERED: Polyethylene Glycol 3350 Powder 17 GM Packet PO SCH (09:00)
[2019-11-27] MEDS ORDERED: Cyclobenzaprine 10 MG Tab PO PRN (09:01)
[2019-11-27] MEDS ORDERED: Naproxen 500 MG Tab PO PRN (09:01)
[2019-11-27] MEDS ORDERED: Bisacodyl 10 MG Supp RECTAL PRN (09:03)
[2019-11-27] MEDS: Sodium Chloride 0.9% 10 ML Syringe FLUSH PRN (09:03)
[2019-11-27] MEDS ORDERED: Doxycycline 100 MG Tab PO SCH (09:15)
[2019-11-27] MEDS ORDERED: Azithromycin 500 MG Tab PO ONE (09:15)
[2019-11-27] MEDS ORDERED: Enoxaparin 40 MG/0.4 ML Syringe SUBCUT SCH (09:15)
[2019-11-27] MEDS ORDERED: predniSONE 20 MG Tab PO SCH (09:15)
--- NOTE | 2019-11-27 10:04 | CR ---
INDICATION: Chest pain. CHEST, ONE VIEW: Portable AP upright view of the chest 11/26/2019 was compared with 12/18/17 and 08/24/17. A large fixed hiatal hernia with air-fluid level is again noted. The heart size appears to be within normal limits with no specific chamber enlargement identified. The aorta is tortuous. There is an appearance of somewhat rounded infiltrate in the right mid lung field which is new compared with the previous study and could represent a focal area of pneumonia, although other process such as malignancy cannot be excluded. There is thickening of the minor fissure to a mild degree which could be on the basis of pneumonia and pleuritis. Depending upon smoking history and other risk factors, additional examination such as CT of the chest without and with IV contrast may be helpful for further evaluation of this finding. Slightly heavy markings are noted at the lung bases, more prominently on the left which may represent interval fibrosis or possibly areas of patchy pneumonia , and should be correlated clinically. Overlying EKG leads are noted. IMPRESSION: 1. 19 mm somewhat rounded area of infiltrate in the right mid lung field, new compared with 12/18/17 - may represent a focal area of pneumonia although malignancy cannot be excluded. 2. Depending upon risk factors including smoking history, additional examination may be warranted such as CT without and with IV contrast. 3. Cannot exclude minimal patchy bronchopneumonia at the lung bases. 4. ASD aorta. 5. Large fixed hiatal hernia which appears to be fairly stable compared with the previous study. There is an air-fluid level in the hernia. MTDD
--- NOTE | 2019-11-27 12:49 | PCM.SN.2 ---
- Free Text/Narrative Note: Patient felt better in the morning. Chest pain was much better after he ate. His troponins 2 that were negative and EKG there are nonspecific. I offered to help him with his constipation but he wants to go home. He understands he has to have the catheter him. His cardiac issue most likely is esophageal.
--- NOTE | 2019-11-27 12:51 | PCM.DCSUM1 ---
Discharge Summary - Hospital Course Free Text/Narrative:: Hospital course-patient had 2 troponins are within normal limits. EKGs showed no acute ischemia. Patient had chest pain related to drinking orange juice. He also has no shortness of breath so I started some prednisone, doxycycline and Zithromax for COPD and possible little secondary bronchitis. May just be the COPD. His oxygen was 88-92%. On room air. He was not able to urinate and had 900 mL residual so a Steward catheters placed. He is complaining of not been able to move his bowels. He says he has very lax at home but has not been using it. He's been going to the [employer] getting cheap laxatives according to the patient. Patient will be discharged home in with a catheter in place with prednisone, doxycycline and Zithromax recheck with primary provider in one week. Brief History: This is an 79-year-old male patient with a long-standing history of smoking came to the ER because of multiple complaints. Says he had some chest pain that was worse with deep inspiration and eating and especially drinking orange juice. It did not radiate anywhere. He had a little nauseated and vomited 1. He's always short of breath that he smoked for over 60 years and continues to smoke a pack a day which is cut down to recently. He has a dry cough with no sputum. Denies wheezing, runny nose, sore throat, fevers. He also has not been able to move his bowels for 3-5 days and is been using lots of laxatives. Denies been on any narcotics. Always has problems with constipation. He has MiraLAX at home but does not use it. So he states that he is not able to move his urine very well. And when he was in the hospital overnight he had a be Because he had 900 mL residual in his bladder. He says he's had to have a catheter in place when he goes over the past. He has no exposures to coronavirus 19. Diagnosis: Stroke: No - Discharge Data Discharge Date: 11/27/19 Discharge Disposition: Home, W Home Health Agency 06 Condition: Good - Referral to Home Health Date of Face to Face Encounter: 11/27/19 Reason for Homebound Status: Steward catheter in place. COPD exacerbation Primary Care Physician: PCP None Skilled Need: Home safety and Steward catheter teaching - Discharge Diagnosis/Problem(s) (1) Anemia SNOMED Code(s): 597598080 ICD Code: D64.9 - ANEMIA, UNSPECIFIED Status: Acute Current Visit: Yes (2) Palliative care status SNOMED Code(s): 380612449 ICD Code: Z51.5 - ENCOUNTER FOR PALLIATIVE CARE Status: Acute Current Visit: Yes (3) Constipation SNOMED Code(s): 87590656 ICD Code: K59.00 - CONSTIPATION, UNSPECIFIED Status: Acute Current Visit : Yes (4) Urinary retention SNOMED Code(s): 060025643 ICD Code: R33.9 - RETENTION OF URINE, UNSPECIFIED Status: Acute Current Visit: Yes (5) TONG (acute kidney injury) SNOMED Code(s): 22914388, 18793890 ICD Code: N17.9 - ACUTE KIDNEY FAILURE, UNSPECIFIED Status: Acute Current Visit: Yes (6) Anxiety SNOMED Code(s): 94194628 ICD Code: F41.9 - ANXIETY DISORDER, UNSPECIFIED Status: Acute Current Visit: Yes (7) Chest pain SNOMED Code(s): 08430705 ICD Code: R07.9 - CHEST PAIN, UNSPECIFIED Status: Acute Current Visit: Yes (8) COPD (chronic obstructive pulmonary disease) with chronic bronchitis SNOMED Code(s): 859440167 ICD Code: J44.9 - CHRONIC OBSTRUCTIVE PULMONARY DISEASE, UNSPECIFIED Status : Acute Current Visit: No (9) Hematuria SNOMED Code(s): 68702200 ICD Code: R31.9 - HEMATURIA, UNSPECIFIED Status: Acute Current Visit: No (10) Tobacco abuse SNOMED Code(s): 136715493 ICD Code: Z72.0 - TOBACCO USE Status: Acute Current Visit: No (11) Hypoxia SNOMED Code(s): 243611498 ICD Code: R09.02 - HYPOXEMIA Status: Acute Current Visit: Yes - Patient Instructions Diet: Heart Healthy Diet Activity: As Tolerated Driving: May Drive Today Showering/Bathing: May Shower Other/Special Instructions: 1. Steward catheter in place. Make sure to adjust the tubing for leg bag. Patient is concerned about this. 2. Home health. 3. Recheck in one week with Dr. Figueroa or myself - Discharge Plan Prescriptions/Med Rec: Azithromycin [Zithromax] 250 mg PO DAILY #4 tablet Enoxaparin [Lovenox] 40 mg SUBCUT Q24H #19 syringe predniSONE 40 mg PO DAILY #5 tablet Home Medications: Home Meds Budesonide/Formoterol Fumarate [Symbicort 80-4.5 MCG] 2 puff INH BID 08/24/17 [ History] Omeprazole [priLOSEC OTC] 20 mg PO DAILY 08/24/17 [History] Albuterol Sulfate [Proair Hfa] 8.5 gm IH Q4HR PRN 11/26/19 [History] Aspirin [Aspirin EC] 325 mg PO DAILY 11/27/19 [History] Azithromycin [Zithromax] 250 mg PO DAILY #4 tablet 11/27/19 [Rx] Cyclobenzaprine [Flexeril] 10 mg PO BEDTIME PRN 11/27/19 [History] Enoxaparin [Lovenox] 40 mg SUBCUT Q24H #19 syringe 11/27/19 [Rx] Naproxen [Naprosyn] 500 mg PO BID PRN 11/27/19 [History] Terazosin [Hytrin] 2 mg PO BEDTIME 11/27/19 [History] amLODIPine Besylate [Amlodipine Besylate] 10 mg PO DAILY 11/27/19 [History] hydroCHLOROthiazide [Hydrochlorothiazide] 25 mg PO DAILY 11/27/19 [History] polyethylene glycoL 3350 [MiraLAX] 17 gm PO DAILY packet 11/27/19 [Rx] predniSONE 40 mg PO DAILY #5 tablet 11/27/19 [Rx] Patient Handouts: Steps to Quit Smoking, [id number], Indwelling Urinary Catheter Care, Adult, [id number], Nonspecific Chest Pain, Adult, [id number] Forms: ED Department Discharge Referrals: PCP,None [Primary Care Provider] - - Discharge Summary/Plan Comment DC Time >30 min.: No - Patient Data Vitals - Most Recent: Last Vital Signs Temp 98.3 F 11/27/19 03:00 Pulse 84 11/27/19 03:00 Resp 20 11/27/19 03:00 BP 126/72 11/27/19 03:00 Pulse Ox 92 L 11/27/19 03:00 Weight - Most Recent: 177 lb 8 oz I&O - Last 24 hours: Intake & Output 11/26/19 11/27/19 11/27/19 22:59 06:59 14:59 Intake Total 150 Output Total 1050 Balance -1050 150 Lab Results - Last 24 hrs: Laboratory Results - last 24 hr 11/26/19 11/26/19 11/26/19 Range/Units 21:18 21:18 21:18 WBC 15.3 H (4.5-12.0) X10-3/uL RBC 3.85 L (4.30-5.75) x10(6)uL Hgb 12.1 L (13.5-17.8) g/dL Hct 35.7 (30.0-51.3) % MCV 92.8 (80-96) fL MCH 31.4 (27.7-33.6) pg MCHC 33.9 (32.2-35.4) g/dL RDW 13.9 (11.5-15.5) % Plt Count 277 (125-369) X10(3)uL MPV 7.3 L (7.4-10.4) fL Neut % (Auto) 75.1 (46-82) % Lymph % (Auto) 16.8 (13-37) % Castro % (Auto) 7.8 (4-12) % Eos % (Auto) 0 L (1.0-5.0) % Baso % (Auto) 0 (0-2) % Neut # (Auto) 11.5 H (1.6-8.3) # Lymph # (Auto) 2.6 (0.6-5.0) # Castro # (Auto) 1.2 (0.0-1.3) # Eos # (Auto) 0.0 (0.0-0.8) # Baso # (Auto) 0.0 (0.0-0.2) # PT (9.0-11.1) sec INR (1.00-1.24) APTT (24.4-33.2) SECONDS D-Dimer, Quantitative (0.0-0.59) mg/LFEU Sodium 143 (135-145) mmol/L Potassium 3.5 (3.5-5.3) mmol/L Chloride 102 D (100-110) mmol/L Carbon Dioxide 31 (21-32) mmol/L BUN 70 H D (7-18) mg/dL Creatinine 1.5 H (0.70-1.30) mg/dL Est Cr Clr Drug Dosing TNP Estimated GFR (MDRD) 45 L (>60) BUN/Creatinine Ratio 46.7 H (9-20) Glucose 141 H (80-116) mg/dL Calcium 11.1 H D (8.6-10.2) mg/dL Total Bilirubin 0.5 (0.1-1.3) mg/dL AST 24 D (5-25) IU/L ALT 37 H D (12-36) U/L Alkaline Phosphatase 67 (56-112) IU/L Troponin I 8.5 (4.0-60.3) pg/mL NT-Pro-B Natriuret Pep 43 (<=450) pg/mL Total Protein 7.1 (6.0-8.0) g/dL Albumin 3.8 (3.2-4.6) g/dL Globulin 3.3 g/dL Albumin/Globulin Ratio 1.2 Urine Color (YELLOW) Urine Appearance (CLEAR) Urine pH (5.0-6.5) Ur Specific [place] (1.010-1.025) Urine Protein (NEGATIVE) mg/dL Urine Glucose (UA) (NORMAL) mg/dL Urine Ketones (NEGATIVE) mg/dL Urine Occult Blood (NEGATIVE) Urine Nitrite (NEGATIVE) Urine Bilirubin (NEGATIVE) Urine Urobilinogen (NEGATIVE) mg/dL Ur Leukocyte Esterase (NEGATIVE) Urine RBC (0-5) 11/26/19 11/26/19 11/26/19 Range/Units 21:18 21:18 23:00 WBC (4.5-12.0) X10-3/uL RBC (4.30-5.75) x10(6)uL Hgb (13.5-17.8) g/dL Hct (30.0-51.3) % MCV (80-96) fL MCH (27.7-33.6) pg MCHC (32.2-35.4) g/dL RDW (11.5-15.5) % Plt Count (125-369) X10(3)uL MPV (7.4-10.4) fL Neut % (Auto) (46-82) % Lymph % (Auto) (13-37) % Castro % (Auto) (4-12) % Eos % (Auto) (1.0-5.0) % Baso % (Auto) (0-2) % Neut # (Auto) (1.6-8.3) # Lymph # (Auto) (0.6-5.0) # Castro # (Auto) (0.0-1.3) # Eos # (Auto) (0.0-0.8) # Baso # (Auto) (0.0-0.2) # PT 10.8 (9.0-11.1) sec INR 1.00 (1.00-1.24) APTT 21.5 L (24.4-33.2) SECONDS D-Dimer, Quantitative 0.65 H (0.0-0.59) mg/LFEU Sodium (135-145) mmol/L Potassium (3.5-5.3) mmol/L Chloride (100-110) mmol/L Carbon Dioxide (21-32) mmol/L BUN (7-18) mg/dL Creatinine (0.70-1.30) mg/dL Est Cr Clr Drug Dosing Estimated GFR (MDRD) (>60) BUN/Creatinine Ratio (9-20) Glucose (80-116) mg/dL Calcium (8.6-10.2) mg/dL Total Bilirubin (0.1-1.3) mg/dL AST (5-25) IU/L ALT (12-36) U/L Alkaline Phosphatase (56-112) IU/L Troponin I 8.5 (4.0-60.3) pg/mL NT-Pro-B Natriuret Pep (<=450) pg/mL Total Protein (6.0-8.0) g/dL Albumin (3.2-4.6) g/dL Globulin g/dL Albumin/Globulin Ratio Urine Color (YELLOW) Urine Appearance (CLEAR) Urine pH (5.0-6.5) Ur Specific [place] (1.010-1.025) Urine Protein (NEGATIVE) mg/dL Urine Glucose (UA) (NORMAL) mg/dL Urine Ketones (NEGATIVE) mg/dL Urine Occult Blood (NEGATIVE) Urine Nitrite (NEGATIVE) Urine Bilirubin (NEGATIVE) Urine Urobilinogen (NEGATIVE) mg/dL Ur Leukocyte Esterase (NEGATIVE) Urine RBC (0-5) 04/24/20 04/24/20 04/24/20 Range/Units 06:07 06:07 06:07 WBC 12.2 H (4.5-12.0) X10-3/uL RBC 3.22 L (4.30-5.75) x10(6)uL Hgb 10.0 L (13.5-17.8) g/dL Hct 30.2 (30.0-51.3) % MCV 93.7 (80-96) fL MCH 31.1 (27.7-33.6) pg MCHC 33.2 (32.2-35.4) g/dL RDW 14.0 (11.5-15.5) % Plt Count 218 (125-369) X10(3)uL MPV (7.4-10.4) fL Neut % (Auto) (46-82) % Lymph % (Auto) (13-37) % [place] % (Auto) (4-12) % Eos % (Auto) (1.0-5.0) % Baso % (Auto) (0-2) % Neut # (Auto) (1.6-8.3) # Lymph # (Auto) (0.6-5.0) # Castro # (Auto) (0.0-1.3) # Eos # (Auto) (0.0-0.8) # Baso # (Auto) (0.0-0.2) # PT (9.0-11.1) sec INR (1.00-1.24) APTT (24.4-33.2) SECONDS D-Dimer, Quantitative (0.0-0.59) mg/LFEU Sodium 143 (135-145) mmol/L Potassium 3.8 (3.5-5.3) mmol/L Chloride 106 (100-110) mmol/L Carbon Dioxide 29 (21-32) mmol/L BUN 64 H (7-18) mg/dL Creatinine 1.2 (0.70-1.30) mg/dL Est Cr Clr Drug Dosing 49.85 Estimated GFR (MDRD) 58 L (>60) BUN/Creatinine Ratio 53.3 H (9-20) Glucose 184 H (80-116) mg/dL Calcium 9.2 (8.6-10.2) mg/dL Total Bilirubin (0.1-1.3) mg/dL AST (5-25) IU/L ALT (12-36) U/L Alkaline Phosphatase (56-112) IU/L Troponin I 8.9 (4.0-60.3) pg/mL NT-Pro-B Natriuret Pep (<=450) pg/mL Total Protein (6.0-8.0) g/dL Albumin (3.2-4.6) g/dL Globulin g/dL Albumin/Globulin Ratio Urine Color (YELLOW) Urine Appearance (CLEAR) Urine pH (5.0-6.5) Ur Specific [place] (1.010-1.025) Urine Protein (NEGATIVE) mg/dL Urine Glucose (UA) (NORMAL) mg/dL Urine Ketones (NEGATIVE) mg/dL Urine Occult Blood (NEGATIVE) Urine Nitrite (NEGATIVE) Urine Bilirubin (NEGATIVE) Urine Urobilinogen (NEGATIVE) mg/dL Ur Leukocyte Esterase (NEGATIVE) Urine RBC (0-5) 04//20 Range/Units 06:40 WBC (4.5-12.0) X10-3/uL RBC (4.30-5.75) x10(6)uL Hgb (13.5-17.8) g/dL Hct (30.0-51.3) % MCV (80-96) fL MCH (27.7-33.6) pg MCHC (32.2-35.4) g/dL RDW (11.5-15.5) % Plt Count (125-369) X10(3)uL MPV (7.4-10.4) fL Neut % (Auto) (46-82) % Lymph % (Auto) (13-37) % [place] % (Auto) (4-12) % Eos % (Auto) (1.0-5.0) % Baso % (Auto) (0-2) % Neut # (Auto) (1.6-8.3) # Lymph # (Auto) (0.6-5.0) # [place] # (Auto) (0.0-1.3) # Eos # (Auto) (0.0-0.8) # Baso # (Auto) (0.0-0.2) # PT (9.0-11.1) sec INR (1.00-1.24) APTT (24.4-33.2) SECONDS D-Dimer, Quantitative (0.0-0.59) mg/LFEU Sodium (135-145) mmol/L Potassium (3.5-5.3) mmol/L Chloride (100-110) mmol/L Carbon Dioxide (21-32) mmol/L BUN (7-18) mg/dL Creatinine (0.70-1.30) mg/dL Est Cr Clr Drug Dosing Estimated GFR (MDRD) (>60) BUN/Creatinine Ratio (9-20) Glucose (80-116) mg/dL Calcium (8.6-10.2) mg/dL Total Bilirubin (0.1-1.3) mg/dL AST (5-25) IU/L ALT (12-36) U/L Alkaline Phosphatase (56-112) IU/L Troponin I (4.0-60.3) pg/mL NT-Pro-B Natriuret Pep (<=450) pg/mL Total Protein (6.0-8.0) g/dL Albumin (3.2-4.6) g/dL Globulin g/dL Albumin/Globulin Ratio Urine Color Red (YELLOW) Urine Appearance Cloudy (CLEAR) Urine pH 5.0 (5.0-6.5) Ur Specific [place] 1.020 (1.010-1.025) Urine Protein Trace (NEGATIVE) mg/dL Urine Glucose (UA) Normal (NORMAL) mg/dL Urine Ketones Negative (NEGATIVE) mg/dL Urine Occult Blood Large H (NEGATIVE) Urine Nitrite Negative (NEGATIVE) Urine Bilirubin Negative (NEGATIVE) Urine Urobilinogen Normal (NEGATIVE) mg/dL Ur Leukocyte Esterase Negative (NEGATIVE) Urine RBC Packed H (0-5) Med Orders - Current: Current Medications Albuterol (Ventolin Hfa) 8.5 gm INH Q4HR PRN PRN Reason: Shortness of Breath Albuterol/Ipratropium (Duoneb 3.0-0.5 Mg/3 Ml) 3 ml NEB QIDRT [facility] Last Admin: 11/27/19 10:25 Dose: 3 ml Amlodipine Besylate (Norvasc) 10 mg PO DAILY [facility] Aspirin (Ecotrin) 325 mg PO DAILY [facility] Azithromycin (Zithromax) 250 mg PO DAILY [facility] Bisacodyl (Dulcolax) 10 mg RECTAL BID PRN PRN Reason: Constipation Cyclobenzaprine HCl (Flexeril) 10 mg PO BEDTIME PRN PRN Reason: Pain Docusate Sodium (Colace) 100 mg PO BID PRN PRN Reason: Constipation Doxycycline Hyclate (Vibra-Tabs) 100 mg PO Q12H [facility] Last Admin: 11/27/19 10:24 Dose: 100 mg Enoxaparin Sodium (Lovenox) 40 mg SUBCUT Q24H [facility] Last Admin: 11/27/19 10:24 Dose: 40 mg Hydrochlorothiazide (Hydrochlorothiazide) 25 mg PO DAILY [facility] Sodium Chloride (Normal Saline) 1,000 mls @ 999 mls/hr IV ASDIRECTED [facility] Last Admin: 11/26/19 21:32 Dose: 999 mls/hr Lidocaine HCl (Xylocaine 2% Jelly) 1 ml MUCMEM ASDIRECTED [facility] Lorazepam (Ativan) 1 mg PO Q8H PRN PRN Reason: Anxiety Naproxen (Naprosyn) 500 mg PO BID PRN PRN Reason: Pain Non-Formulary Medication (Budesonide/Formoterol Fumarate [Symbicort 80-4.5 Mcg] ) 2 puff INH BID [facility] Non-Formulary Medication (Omeprazole [Prilosec Otc]) 20 mg PO DAILY [facility] Polyethylene Glycol (Miralax) 17 gm PO DAILY [facility] Last Admin: 11/27/19 10:23 Dose: 17 gm Prednisone (Prednisone) 40 mg PO DAILY [facility] Last Admin: 11/27/19 10:24 Dose: 40 mg Sodium Chloride (Saline Flush) 10 ml FLUSH ASDIRECTED PRN PRN Reason: Keep Vein Open Last Admin: 11/27/19 09:03 Dose: 10 ml Sodium Chloride (Saline Flush) 10 ml FLUSH ASDIRECTED PRN PRN Reason: Keep Vein Open Terazosin HCl (Hytrin) 2 mg PO BEDTIME [facility] Discontinued Medications Albuterol/Ipratropium (Duoneb 3.0-0.5 Mg/3 Ml) 3 ml NEB ONETIME ONE Stop: 11/26/19 21:21 Last Admin: 11/26/19 21:28 Dose: 3 ml Aspirin (Aspirin) 324 mg PO ONETIME ONE Stop: 11/26/19 21:18 Last Admin: 11/26/19 21:24 Dose: 324 mg Azithromycin (Zithromax) 500 mg PO ONETIME ONE Stop: 11/27/19 09:16 Last Admin: 11/27/19 10:24 Dose: 500 mg Sodium Chloride (Normal Saline) 1,000 mls @ 500 mls/hr IV ASDIRECTED [facility] Sodium Chloride (Normal Saline) 1,000 mls @ 125 mls/hr IV ASDIRECTED [facility] Last Admin: 11/27/19 00:42 Dose: 125 mls/hr Influenza Virus Vaccine (Pharmacy To Dose - Influenza Vaccine) 1 each IM ONETIME ONE Stop: 11/28/19 09:01 Lidocaine HCl (Glydo) 6 ml .XX ONETIME ONE Stop: 11/27/19 06:31 Last Admin: 11/27/19 06:26 Dose: 6 ml Lidocaine HCl (Glydo) Confirm Administered Dose 6 ml .ROUTE .STK-MED ONE Stop: 11/27/19 06:16 Last Admin: 11/27/19 07:58 Dose: Not Given Lorazepam (Ativan) 1 mg PO ONETIME ONE Stop: 11/26/19 21:43 Last Admin: 11/26/19 21:49 Dose: 1 mg Methylprednisolone Sodium Succinate (Solu-Medrol) 125 mg IVPUSH ONETIME ONE Stop: 11/26/19 21:20 Last Admin: 11/26/19 21:28 Dose: 125 mg Morphine Sulfate (Morphine) 2 mg IVPUSH ONETIME ONE Stop: 11/26/19 21:49 Last Admin: 11/26/19 21:52 Dose: 2 mg Nitroglycerin (Nitrostat) 0.4 mg SL ONETIME ONE Stop: 11/26/19 21:18 Last Admin: 11/26/19 21:24 Dose: 0.4 mg Ondansetron HCl (Zofran) 4 mg IVPUSH ONETIME ONE Stop: 11/26/19 21:18 Last Admin: 11/26/19 21:21 Dose: 4 mg Pantoprazole Sodium (Protonix Iv) 80 mg IVPUSH .BOLUS ONE Stop: 11/26/19 22:12 Last Admin: 11/26/19 22:59 Dose: 80 mg Pantoprazole Sodium (Protonix Iv) 40 mg IVPUSH DAILY [facility] Last Admin: 11/27/19 09:03 Dose: 40 mg
[2019-11-27 14:33] VITALS: BP 147/73; PULSE 94
[2019-11-28] MEDS ORDERED: Non-Formulary Medication 1 Each (Omeprazole [Prilosec Otc] 20 MG) PO SCH (09:00)
[2019-11-28] MEDS ORDERED: amLODIPine 10 MG Tab PO SCH (09:00)
[2019-11-28] MEDS ORDERED: Azithromycin 250 MG Tab PO SCH (09:00)
[2019-11-28] MEDS ORDERED: Hydrochlorothiazide 25 MG Tab PO SCH (09:00)
[2019-11-28] MEDS ORDERED: Aspirin 325 MG Tab.EC PO SCH (09:00)
== END 2019-11-27 13:24 | disposition home health service (06) ==
LOC: FB.ED 21:08 → FB.MS 22:11
PROVIDERS: ADMIT Emergency Medicine; ATTEND Family Medicine
DX: R07.2 Precordial pain (principal); N17.9 Acute kidney failure, unspecified; E86.0 Dehydration; D64.9 Anemia, unspecified; K59.00 Constipation, unspecified; Z51.5 Encounter for palliative care; R33.9 Retention of urine, unspecified; R31.9 Hematuria, unspecified; R09.02 Hypoxemia; F41.9 Anxiety disorder, unspecified; I10 Essential (primary) hypertension; J44.9 Chronic obstructive pulmonary disease, unspecified; K21.9 Gastro-esophageal reflux disease without esophagitis; F32.9 Major depressive disorder, single episode, unspecified; F17.210 Nicotine dependence, cigarettes, uncomplicated; Z79.51 Long term (current) use of inhaled steroids; Z79.82 Long term (current) use of aspirin; Z79.899 Other long term (current) drug therapy
CPT/HCPCS: 36415; 51702; 71045; 80048; 80053; 81001; 83880; 84484; 85025; 85027; 85379; 85610; 85730; 93005; 94640; 96361; 96372; 96374; 96375; 96376; 99285-25; A9270-GY; C9113; G0378; J1650; J2270; J2405; J2930; J7030; J7512; J7620-GY

== ENCOUNTER 2022-04-20 14:12 | Emergency (ER) | payer MEDICARE ==
[2022-04-20] MEDS ORDERED: Bisacodyl 10 MG Supp RECTAL ONE (14:42)
[2022-04-20] MEDS ORDERED: Polyethylene Glycol 3350 Powder 17 GM Packet PO ONE (14:43)
[2022-04-20] MEDS ORDERED: Sodium Chloride 0.9% 10 ML Syringe FLUSH PRN (14:49)
[2022-04-20 15:28] LABS: ESTIMATED GFR 60 mL/min (>60)
[2022-04-20] MEDS ORDERED: Ketorolac 30 MG/ML SDV IM ONE (15:56)
[2022-04-20] MEDS ORDERED: Acetaminophen 500 MG Tab PO ONE (15:57)
[2022-04-20] MEDS ORDERED: Iopamidol 755 Mg/ML 100 ML Bottle IV ONE (15:58)
[2022-04-20] MEDS ORDERED: Sodium Phosphate,Monobasic/Sodium Phosphate,Dibasic Enema 133 ML Bottle RECTAL ONE (17:00)
[2022-04-20] MEDS ORDERED: Lidocaine 4% 1 each Patch TOP STA (17:57)
[2022-04-20 20:13] VITALS: BP 130/84; PULSE 92
== END 2022-04-20 18:30 | disposition home or self-care (01) ==
LOC: FB.ED 14:12
DX: K59.01 Slow transit constipation (principal); M54.41 Lumbago with sciatica, right side; R33.9 Retention of urine, unspecified; R31.0 Gross hematuria; I10 Essential (primary) hypertension; J44.9 Chronic obstructive pulmonary disease, unspecified; K21.9 Gastro-esophageal reflux disease without esophagitis; Z79.82 Long term (current) use of aspirin; Z79.899 Other long term (current) drug therapy
CPT/HCPCS: 36415; 51702; 51798; 74178; 80048; 85027; 87086; 99284; A9270; J1885; Q9967

== ENCOUNTER 2023-02-10 15:20 | Emergency (ER) | payer OTHER, MEDICARE ==
[2023-02-10] MEDS ORDERED: Morphine 4 MG/ML VIAL IVPUSH ONE (15:48)
[2023-02-10 15:49] LABS: BLOOD UREA NITROGEN,BUN 17 mg/dL (7-18); CALCIUM 8.7 mg/dL (8.6-10.2); CARBON DIOXIDE,CO2 26 mmol/L (21-32); CHLORIDE,CL 107 mmol/L (100-110); ESTIMATED GFR 74 mL/min (>60); GLUCOSE RANDOM 115 mg/dL (80-116); SODIUM,NA 144 mmol/L (135-145)
[2023-02-10 15:50] LABS: BASOPHILS PERCENT AUTO 0.4 % (0.3-3.8); EOSINOPHILS ABSOLUTE AUTO 0.1 x10-3/uL (0.0-0.6); EOSINOPHILS PERCENT AUTO 0.7 % (0.1-6.8); HEMATOCRIT 35.8 % (38.3-50.1); HEMOGLOBIN 11.9 g/dL (12.9-17.7); LYMPHOCYTES ABSOLUTE AUTO 1.2 x10-3/uL (0.5-4.5); LYMPHOCYTES PERCENT AUTO 11.7 % (15.8-45.3); MEAN CORPUSCULAR HEMOGLOBIN 29.2 pg (27.0-33.3); MEAN CORPUSCULAR HGB CONC 33.3 g/dL (28.7-35.3); MEAN CORPUSCULAR VOLUME 87.7 fL (80.8-98.7); MEAN PLATELET VOLUME 6.8 fL (6.7-11.0); MONOCYTES ABSOLUTE AUTO 0.7 x10-3/uL (0.0-1.2); MONOCYTES PERCENT AUTO 7.2 % (5.5-15.2); NEUTROPHILS ABSOLUTE AUTO 8.1 x10-3/uL (1.7-6.9); PLATELET COUNT,PLT 254 x10(3)uL (117-477); RED BLOOD CELL COUNT 4.08 x10(6)uL (3.90-5.90); RED CELL DISTRIBUTION WIDTH 15.1 % (12.4-15.0); WHITE BLOOD CELL COUNT,WBC 10.2 x10-3/uL (3.2-10.1)
[2023-02-10] MEDS ORDERED: methylPREDNISolone Sodium Succinate 125 MG/2 ML SDV IVPUSH ONE (15:52)
[2023-02-10 15:55] LABS: A/G RATIO 0.9; ALANINE AMINOTRANSFERASE,ALT 18 U/L (12-36); ALBUMIN 3.3 g/dL (3.2-4.6); ALKALINE PHOSPHATASE 78 IU/L (56-112); ASPARTATE AMNIOTRANSFERASE,AST 14 IU/L (5-25); BILIRUBIN TOTAL 0.7 mg/dL (0.1-1.3); PROTEIN TOTAL,TP 6.9 g/dL (6.0-8.0)
[2023-02-10] MEDS ORDERED: Diltiazem 25 MG/5 ML SDV IVPUSH ONE ×2 (16:06→18:19)
[2023-02-10] MEDS ORDERED: Iopamidol 755 Mg/ML 100 ML Bottle IV ONE (17:30)
[2023-02-10] MEDS ORDERED: Ketorolac 30 MG/ML SDV IVPUSH ONE (18:20)
[2023-02-10] MEDS ORDERED: Metoprolol Succinate 50 MG Tab.ER PO ONE (18:20)
[2023-02-10] MEDS ORDERED: Apixaban 5 MG Tab PO STA (19:03)
[2023-02-10 19:29] VITALS: BP 138/100; PULSE 87
== END 2023-02-10 19:25 | disposition home or self-care (01) ==
LOC: FB.ED 15:20
DX: G89.29 Other chronic pain (principal); M54.9 Dorsalgia, unspecified; K59.00 Constipation, unspecified; C34.90 Malignant neoplasm of unspecified part of unspecified bronchus or lung; I26.99 Other pulmonary embolism without acute cor pulmonale; J44.9 Chronic obstructive pulmonary disease, unspecified; K21.9 Gastro-esophageal reflux disease without esophagitis; M19.90 Unspecified osteoarthritis, unspecified site; I48.91 Unspecified atrial fibrillation; Z79.82 Long term (current) use of aspirin; Z79.51 Long term (current) use of inhaled steroids; Z79.899 Other long term (current) drug therapy; Z79.01 Long term (current) use of anticoagulants
CPT/HCPCS: 36415; 71045; 71275; 80053; 83880; 85025; 85379; 93005; 93010; 96374; 96375; 96376; 99284; 99285-25; A9270-GY; J1885; J2270; J2930; J3490; Q9967

== ENCOUNTER 2023-02-23 17:02 | Inpatient (IN) | payer OTHER, MEDICARE ==
[2023-02-23] MEDS ORDERED: Morphine 2 MG/ML SYRINGE ONE (17:28)
[2023-02-23] MEDS ORDERED: Morphine 2 MG/ML SYRINGE IVPUSH ONE (17:32)
[2023-02-23] MEDS ORDERED: LORazepam 2 MG/ML SDV IVPUSH STA (19:21)
[2023-02-23] MEDS ORDERED: LORazepam 2 MG/ML SDV IVPUSH PRN (22:14)
[2023-02-23] MEDS: Morphine 2 MG/ML SYRINGE IVPUSH PRN (23:06)
[2023-02-24] MEDS: Morphine 2 MG/ML SYRINGE IVPUSH PRN ×10 (01:23→23:31)
[2023-02-24] MEDS ORDERED: Morphine 2 MG/ML SYRINGE IVPUSH PRN (01:59)
[2023-02-24] MEDS ORDERED: LORazepam 2 MG/ML SDV IVPUSH PRN (01:59)
[2023-02-24] MEDS: LORazepam 2 MG/ML SDV IVPUSH PRN ×9 (03:35→23:33)
[2023-02-24] MEDS ORDERED: Morphine Oral Concentrate 20 MG/ML 30 ML Bottle SL PRN (11:09)
[2023-02-24] MEDS ORDERED: Scopolamine 1.5 MG Transdermal Patch TRDERM PRN (11:10)
[2023-02-24] MEDS: Glycopyrrolate 0.2 MG/ML 5 ML MDV SUBCUT PRN ×2 (11:56→21:29)
[2023-02-24] MEDS: Sodium Chloride 0.9% 10 ML Syringe FLUSH PRN ×2 (16:23→19:19)
[2023-02-25] MEDS: LORazepam 2 MG/ML SDV IVPUSH PRN ×4 (02:12→09:31)
[2023-02-25] MEDS: Morphine 2 MG/ML SYRINGE IVPUSH PRN ×2 (02:12→04:12)
[2023-02-25] MEDS ORDERED: Morphine 4 MG/ML VIAL IVPUSH PRN (05:42)
[2023-02-25] MEDS: Morphine 10 MG/0.5 ML Oral Syringe SL PRN ×4 (08:06→11:36)
[2023-02-25 08:14] VITALS: BP 166/85; PULSE 109
[2023-02-25] MEDS ORDERED: Hyoscyamine 0.125 MG Tab.SL PO PRN (08:15)
[2023-02-25] MEDS ORDERED: fentaNYL 25 MCG/HR Transdermal Patch TRDERM SCH (08:15)
[2023-02-27] MEDS ORDERED: Scopolamine 1.5 MG Transdermal Patch TRDERM SCH (12:00)
== END 2023-02-25 11:44 | disposition expired | DRG 951 ==
LOC: FB.ED 17:02 → FB.MS 02-24 02:22 → OBSVTOIN 02-24 11:50
PROVIDERS: ADMIT Emergency Medicine; ATTEND Student in an Organized Health Care Education/Training Program
DX: Z51.5 Encounter for palliative care (principal); C34.91 Malignant neoplasm of unspecified part of right bronchus or lung; I47.1 Supraventricular tachycardia; I46.9 Cardiac arrest, cause unspecified; H54.7 Unspecified visual loss; Z66 Do not resuscitate; J44.9 Chronic obstructive pulmonary disease, unspecified; I10 Essential (primary) hypertension; K21.9 Gastro-esophageal reflux disease without esophagitis; N40.0 Benign prostatic hyperplasia without lower urinary tract symptoms; F41.9 Anxiety disorder, unspecified; F32.A Depression, unspecified; M19.90 Unspecified osteoarthritis, unspecified site; M54.9 Dorsalgia, unspecified; G89.29 Other chronic pain; M54.2 Cervicalgia; I48.91 Unspecified atrial fibrillation; Z98.890 Other specified postprocedural states; Z90.49 Acquired absence of other specified parts of digestive tract
CPT/HCPCS: 96374; 99285; J2060 ×6; J2270 ×7; 93010; 99223; 99238; 99283; A9270-GY; J3490